=== PATIENT | male | born 1970 | race Caucasian/White ===

== ENCOUNTER 2023-11-06 18:26 | Inpatient (IN) | payer MEDICAID, SELFPAY ==
[2023-11-06] VITALS (22 sets, daily range): BP systolic 75–109; BP diastolic 56–74; PULSE 134–147; RESP 18–40; TEMP 37.1; O2SAT 79–93; BMI 17.8; BMI 17.7
--- NOTE | 2023-11-06 18:33 | XRR_ITS ---
PROCEDURE INFORMATION: Exam: XR Chest Exam date and time: 11/06/2023 6:41 PM Age: 53 years old Clinical indication: Angina pectoris; Patient HX: Chest pain TECHNIQUE: Imaging protocol: Radiologic exam of the chest. Views: 1 view. COMPARISON: No relevant prior studies available. FINDINGS: Lungs: Left mid to lower lung field pneumonia. Emphysematous changes. Pleural spaces: Small bilateral left greater than right pleural effusions suspected. Heart/Mediastinum: Unremarkable. No cardiomegaly. Bones/joints: Unremarkable. XR/XR chest 1V portable [id number] IMPRESSION: 1. Left mid to lower lung field pneumonia. 2. Small bilateral left greater than right pleural effusions suspected. 3. Emphysematous changes.
--- NOTE | 2023-11-06 18:33 | ECG_ITS ---
[facility] Test Date: 2023-11-06 Pat Name: Johnathan Santiago Department: Room: ICU02 Gender: Male Rn Occupational: : 1970 Requested By: Art Pulido Order Number: [id number] Trena MD: Sharmin Barboza M.D. Measurements Intervals [place] Rate: 144 P: 72 AK: 120 QRS: 80 QRSD: 87 T: 69 QT: 263 QTc: 407 Interpretive Statements SINUS TACHYCARDIA, POSSIBLE ATRIAL FLUTTER ABNORMAL RHYTHM ECG INTERPRETATION BASED ON A DEFAULT AGE OF 40 YEARS No previous ECG available for comparison Electronically Signed On 11-07-2023 20:51:34 [employer] by Sharmin Barboza M.D. [id number] f
--- NOTE | 2023-11-06 18:37 | ED_ITS ---
Documented by User: Art Garcia DO 11/07/23 00:43 HPI - Chest Pain 2 General: Chief Complaint: Chest Pain Stated Complaint: CHEST PAIN Time Seen by Provider: 11/06/23 18:29 History of Present Illness: 53-year-old male he says he has been sic k for 24 hours or so. He complains of left-sided pleuritic chest pain, cough, sputum production, and vomiting the last 24 hours. He says he has vomited several times last 24 hours. He denies a fever. He has not felt well. He is felt weak. He has been very short of breath. Associated symptoms: Reports dyspnea Review of Systems 2 Const: Reports: chills and body aches ENMT: Denies: throat pain Card: Reports: chest pain Resp: Reports: dyspnea and productive cough PFSH ED 2 PFSH: Family History Mother No problems noted. Father No problems noted. Social History Smoking and tobacco/nicotine status: current every day tobacco/nicotine user cigarettes Packs smoked per day: 1.5 Years cigarettes smoked: 40 [ Other cigarette details: at times smoked more than 1.5/ppd] Second hand smoke exposure: Yes Alcohol intake: current Alcohol intake frequency: few times a month Alcohol type: hard liquor Substance/Drug Use: never Household members: spouse Current occupational status: unemployed Physical Exam 2 Const: GENERAL APPEARANCE: cooperative and ill appearing HENMT: COMMON NORMALS: normocephalic, atraumatic and Normal external nose present HEAD & SCALP: normocephalic and atraumatic FACE & SINUS: normal facial exam and face symmetric NOSE: Normal external nose present and Normal nares present MOUTH: moist mucous membranes abnormal Details: parched Eye: COMMON NORMALS: Equal, round and reactive pupils present and EOMs intact bilaterally PUPIL: Yes Equal, round and reactive pupils present Neck/C-Spine: GENERAL: Yes trachea midline Resp: EFFORT & INSPECTION: Yes tachypneic and Yes labored AUSCULTATION: r honchi and diminished lung sounds Cardio: COMMON NORMALS: regular rhythm RATE: tachycardic RHYTHM: regular rhythm GI: COMMON NORMALS: Normal to inspection, nondistended, normoactive bowel sounds present Extremity: COMMON NORMALS: no pedal edema Neuro: ROCÍO COMA SCALE: document GCS findings Rocío coma scale eye opening: Spontaneous Rocío coma scale verbal response: Orientated Rocío coma scale motor response: Obey commands Rocío coma scale total score: 15 Procedures Central Line Placement Right IJ: Time Out Performed: Yes Patient Placed on Monitor/Pulse Ox: Yes MD Prep: mask, gown and gloves Central Line Prep: Chlorhexidine scrub Local Anesthetic: lidocaine 1% Amount of anesthesia used (mL): 3 Ultrasound Used for Placement: Yes Central Line Lumen Inserted: triple Post Procedure: sutured in place, good blood return, all ports aspirated, flushed, capped and sterile dressing applied Post Procedure X-Ray: tip of catheter in good position Patient Tolerated Procedure: well and no complications Complications: none Course 2 Vital Signs: Vital signs: Vital Signs Temperature 98.5 F 11/07/23 00:00 Pulse Rate 133 H 11/07/23 00:30 Respiratory Rate 38 H 11/07/23 00:30 Blood Pressure 92/55 11/07/23 00:30 Pulse Oximetry 89 L 11/07/23 00:30 Oxygen Delivery Me thod Heated High Flow 11/07/23 00:00 Oxygen Flow Rate 45 11/07/23 00:00 Fraction of Inspir ed Oxygen 80 11/07/23 00:00 MDM - Chest Pain Medical Decision Making Patient's heart rate is in the 140s. He is tachypneic. Oxygen saturations are low despite 6 L nasal cannula. White blood cell count is 26, 96% neutrophils. Chest x-ray shows left consolidated pneumonia. Lactic acid is 6.2. His CRP is 177. He meets sepsis criteria. He is hypotensive, with blood pressures as low as 75 systolic. He received a liter of Plasma-Lyte by EMS. He has received 2 L of fluid here, which is more than a suggested 30 mL/kg sepsis bolus. He remains hypotensive and tachycardic despite this. Central line will be placed. Levophed has been ordered as well as Zosyn and vancomycin. Patient is on heated high flow nasal cannula. Oxygen saturations are high 80s to low 90s. He looks improved. Blood pressure is improved after fluids and pressures. He will go to the ICU. Hospitalist has seen the patient in the ER. Chest x-ray shows line in good position. Lab Data 11/06/23 18:39 11/06/23 18:39 Radiology Impressions Chest X-Ray 11/06/23 21:18 IMPRESSION: 1. New right internal jugular venous catheter terminating in the region of the cavoatrial junction. 2. Otherwise stable radiographic appearance of the chest. Laboratory Results WBC 25.92 10^3/uL (3.29-11.43) H 11/06/23 18:39 RBC 4.36 10^6/uL (3.85-5.65) 11/06/23 18:39 Hgb 13.30 g/dL (11.27-16.99) 11/06/23 18:39 Hct 39.7 % (37-53) 11/06/23 18:39 MCV 91.1 fl (82-101) 11/06/23 18:39 MCH 30.5 pg (27-33) 11/06/23 18:39 MCHC 33.5 g/dL (30-55) 11/06/23 18:39 RDW 11.9 % (12.1-15.1) L 11/06/23 18:39 Plt Count 274 10^3/cmm (157-399) 11/06/23 18:39 MPV 9.1 fL (7.4-10.4) 11/06/23 18:39 Neut % (Auto) 96.9 % 11/06/23 18:39 Lymph % (Auto) 2.0 % 11/06/23 18:39 [place] % (Auto) 0.4 % 11/06/23 18:39 Eos % (Auto) 0.0 % 11/06/23 18:39 Baso % (Auto) 0.2 % 11/06/23 18:39 Neut # (Auto) 25.11 10^3/uL (1.8-7.7) H 11/06/23 18:39 Lymph # (Auto) 0.5 10^3/uL (0.8-4.8) L 11/06/23 18:39 [place] # (Auto) 0.1 10^3/uL (0.2-0.9) L 11/06/23 18:39 Eos # (Auto) 0.0 10^3/uL (0.0-0.8) 11/06/23 18:39 Baso # (Auto) 0.1 10^3/uL (0.0-0.1) 11/06/23 18:39 Nucleated RBC % (auto) 0 % 11/06/23 18:39 Nucleated RBCs # 0.0 /100WBC 11/06/23 18:39 D-Dimer 0.54 ug/mLFEU (0-0.59) 11/06/23 18:39 Sodium 130 mmol/L (136-145) L 11/06/23 18:39 Potassium 4.6 mmol/L (3.5-5.1) 11/06/23 18:39 Chloride 90 mmol/L (98-107) L 11/06/23 18:39 Carbon Dioxide 23 mmol/L (22-29) 11/06/23 18:39 Anion Gap 21.6 (5-19) H 11/06/23 18:39 BUN 33 mg/dL (6-20) H 11/06/23 18:39 Creatinine 1.5 mg/dL (0.7-1.2) H 11/06/23 18:39 GFR Calculation 48.6 mL/min (90-130) L 11/06/23 18:39 Glucose 91 mg/dL (65-115) 11/06/23 18:39 Calculated Osmolality 277 mOsm/kg (285-295) L 11/06/23 18:39 Lactic Acid 6.2 mmol/L (0.5-2.2) H* 11/06/23 18:39 Calcium 8.1 mg/dL (8.5-10.5) L 11/06/23 18:39 Magnesium 1.3 mg/dL (1.7-2.3) L 11/06/23 18:39 Total Bilirubin 0.5 mg/dL (0.15-1.2) 11/06/23 18:39 AST 21 U/L (0-40) 11/06/23 18:39 ALT 12 U/L (0-41) 11/06/23 18:39 Alkaline Phosphatase 66 U/L (40-130) 11/06/23 18:39 Creatine Kinase 246 U/L (39-308) 11/06/23 18:39 Troponin T Baseline 13 ng/L (0-15) 11/06/23 18:39 Troponin T 120 Minute 10.36 ng/L (0-15) 11/06/23 19:49 Delta Troponin T -2.64 ABS# (0-10) L 11/06/23 19:49 C-Reactive Protein 176.6 mg/L (0.0-4.9) H 11/06/23 18:39 Total Protein 5.2 g/dL (6.6-8.7) L 11/06/23 18:39 Albumin 3.3 g/dL (3.5-5.2) L 11/06/23 18:39 Globulin 1.9 g/dL (1.3-4.6) 11/06/23 18:39 Lipase 6 U/L (13-60) L 11/06/23 18:39 Urine Color Yellow (Yellow) 11/06/23 20:10 Urine Appearance Sl hazy (CLEAR) A 11/06/23 20:10 Urine pH 5 (5-7) 11/06/23 20:10 Ur Specific Lindsay 1.010 (1.005-1.030) 11/06/23 20:10 Urine Protein 1+ (Negative) H 11/06/23 20:10 Urine Glucose (UA) Norm (Normal) 11/06/23 20:10 Urine Ketones 1+ (Negative) H 11/06/23 20:10 Urine Blood 3+ (Negative) H 11/06/23 20:10 Urine Nitrate Negative (Negative) 11/06/23 20:10 Urine Bilirubin Neg (Negative) 11/06/23 20:10 Urine Urobilinogen Norm mg/dL (Negative) 11/06/23 20:10 Ur Leukocyte Esterase Negative (Negative) 11/06/23 20:10 Urine RBC 0-4 /hpf (0-2) H 11/06/23 20:10 Urine WBC 0-4 /hpf (0-5) H 11/06/23 20:10 Ur Squamous Epith Cells 0-4 /hpf (0-5) H 11/06/23 20:10 Amorphous Sediment Trace /hpf 11/06/23 20:10 Urine Bacteria 2+ /hpf (NONE) H 11/06/23 20:10 Hyaline Casts 0-4 /lpf H 11/06/23 20:10 Coarse Granular Casts 0-4 /lpf H 11/06/23 20:10 Urine Opiates Screen Negative ng/mL (Negative) 11/06/23 20:10 Ur Barbiturates Screen Negative ng/mL (Negative) 11/06/23 20:10 Ur Phencyclidine Scrn Negative ng/mL (Negative) 11/06/23 20:10 Ur Amphetamines Screen Negative ng/mL (Negative) 11/06/23 20:10 U Benzodiazepines Scrn Negative ng/mL (Negative) 11/06/23 20:10 Urine Cocaine Screen Negative ng/mL (Negative) 11/06/23 20:10 U Marijuana (THC) Screen Negative ng/mL (Negative) 11/06/23 20:10 Adenovirus (PCR) Not detected (NOT DETECT) 11/06/23 18:40 C. pneumoniae DNA (PCR) Not detected (NOT DETECT) 11/06/23 18:40 Coronavirus 229E (PCR) Not detected (NOT DETECT) 11/06/23 18:40 Human Metapneumovir PCR Not detected (NOT DETECT) 11/06/23 18:40 Influenza A (H1) PCR Not detected (NOT DETECT) 11/06/23 18:40 Influ A (H1/09) PCR Not detected (NOT DETECT) 11/06/23 18:40 Influenza A (H3) PCR Not detected (NOT DETECT) 11/06/23 18:40 Influenza Type A (PCR) Not detected (NOT DETECT) 11/06/23 18:40 Influenza Type B (PCR) Not detected (NOT DETECT) 11/06/23 18:40 M. pneumoniae (PCR) Not detected (NOT DETECT) 11/06/23 18:40 Parainfluenza 1 (PCR) Not detected (NOT DETECT) 11/06/23 18:40 Parainfluenza 2 (PCR) Not detected (NOT DETECT) 11/06/23 18:40 Parainfluenza 3 (PCR) Not detected (NOT DETECT) 11/06/23 18:40 Parainfluenza 4 (PCR) Not detected (NOT DETECT) 11/06/23 18:40 RSV Type A (PCR) Not detected (NOT DETECT) 11/06/23 18:40 RSV Type B (PCR) Not detected (NOT DETECT) 11/06/23 18:40 Entero/Rhino (PCR) Not detected (NOT DETECT) 11/06/23 18:40 SARS-CoV-2 (PCR) Not detected (NOT DETECT) 11/06/23 18:40 All radiology interpretation(s) finalized by discharge Discharge Plan Discharge Patient Disposition: Admitted As Inpatient Admit Provider: Bob Tidwell Clinical Impression: Sepsis with acute respiratory failure and septic shock, Pneumonia Condition: Critical Coding Level of Care Code ED Interventional Radiologist for Chg Fwd Documented by User: Bob Tidwell DO 11/06/23 21:21 HPI - Chest Pain 2 General: Chief Complaint: Chest Pain Stated Complaint: CHEST PAIN Time Seen by Provider: 11/06/23 18:29 PFS ED 2 PFSH: Family History Mother No problems noted. Father No problems noted. Social History Smoking and tobacco/nicotine status: current every day tobacco/nicotine user cigarettes Packs smoked per day: 1.5 Years cigarettes smoked: 40 [ Other cigarette details: at times smoked more than 1.5/ppd] Second hand smoke exposure: Yes Alcohol intake: current Alcohol intake frequency: few times a month Alcohol type: hard liquor Substance/Drug Use: never Household members: spouse Current occupational status: unemployed Physical Exam 2 Neuro: ROCÍO COMA SCALE: document GCS findings [place] coma scale total score: 15 Course 2 Vital Signs: Vital signs: Vital Signs Temperature 98.5 F 11/07/23 00:00 Pulse Rate 133 H 11/07/23 00:30 Respiratory Rate 38 H 11/07/23 00:30 Blood Pressure 92/55 11/07/23 00:30 Pulse Oximetry 89 L 11/07/23 00:30 Oxygen Delivery Me thod Heated High Flow 11/07/23 00:00 Oxygen Flow Rate 45 11/07/23 00:00 Fraction of Inspir ed Oxygen 80 11/07/23 00:00 MDM - Chest Pain Lab Data 11/06/23 18:39 11/06/23 18:39 Radiology Impressions Chest X-Ray 11/06/23 21:18 IMPRESSION: 1. New right internal jugular venous catheter terminating in the region of the cavoatrial junction. 2. Otherwise stable radiographic appearance of the chest. Laboratory Results WBC 25.92 10^3/uL (3.29-11.43) H 11/06/23 18:39 RBC 4.36 10^6/uL (3.85-5.65) 11/06/23 18:39 Hgb 13.30 g/dL (11.27-16.99) 11/06/23 18:39 Hct 39.7 % (37-53) 11/06/23 18:39 MCV 91.1 fl (82-101) 11/06/23 18:39 MCH 30.5 pg (27-33) 11/06/23 18:39 MCHC 33.5 g/dL (30-55) 11/06/23 18:39 RDW 11.9 % (12.1-15.1) L 11/06/23 18:39 Plt Count 274 10^3/cmm (157-399) 11/06/23 18:39 MPV 9.1 fL (7.4-10.4) 11/06/23 18:39 Neut % (Auto) 96.9 % 11/06/23 18:39 Lymph % (Auto) 2.0 % 11/06/23 18:39 [place] % (Auto) 0.4 % 11/06/23 18:39 Eos % (Auto) 0.0 % 11/06/23 18:39 Baso % (Auto) 0.2 % 11/06/23 18:39 Neut # (Auto) 25.11 10^3/uL (1.8-7.7) H 11/06/23 18:39 Lymph # (Auto) 0.5 10^3/uL (0.8-4.8) L 11/06/23 18:39 [place] # (Auto) 0.1 10^3/uL (0.2-0.9) L 11/06/23 18:39 Eos # (Auto) 0.0 10^3/uL (0.0-0.8) 11/06/23 18:39 Baso # (Auto) 0.1 10^3/uL (0.0-0.1) 11/06/23 18:39 Nucleated RBC % (auto) 0 % 11/06/23 18:39 Nucleated RBCs # 0.0 /100WBC 11/06/23 18:39 D-Dimer 0.54 ug/mLFEU (0-0.59) 11/06/23 18:39 Sodium 130 mmol/L (136-145) L 11/06/23 18:39 Potassium 4.6 mmol/L (3.5-5.1) 11/06/23 18:39 Chloride 90 mmol/L (98-107) L 11/06/23 18:39 Carbon Dioxide 23 mmol/L (22-29) 11/06/23 18:39 Anion Gap 21.6 (5-19) H 11/06/23 18:39 BUN 33 mg/dL (6-20) H 11/06/23 18:39 Creatinine 1.5 mg/dL (0.7-1.2) H 11/06/23 18:39 GFR Calculation 48.6 mL/min (90-130) L 11/06/23 18:39 Glucose 91 mg/dL (65-115) 11/06/23 18:39 Calculated Osmolality 277 mOsm/kg (285-295) L 11/06/23 18:39 Lactic Acid 6.2 mmol/L (0.5-2.2) H* 11/06/23 18:39 Calcium 8.1 mg/dL (8.5-10.5) L 11/06/23 18:39 Magnesium 1.3 mg/dL (1.7-2.3) L 11/06/23 18:39 Total Bilirubin 0.5 mg/dL (0.15-1.2) 11/06/23 18:39 AST 21 U/L (0-40) 11/06/23 18:39 ALT 12 U/L (0-41) 11/06/23 18:39 Alkaline Phosphatase 66 U/L (40-130) 11/06/23 18:39 Creatine Kinase 246 U/L (39-308) 11/06/23 18:39 Troponin T Baseline 13 ng/L (0-15) 11/06/23 18:39 Troponin T 120 Minute 10.36 ng/L (0-15) 11/06/23 19:49 Delta Troponin T -2.64 ABS# (0-10) L 11/06/23 19:49 C-Reactive Protein 176.6 mg/L (0.0-4.9) H 11/06/23 18:39 Total Protein 5.2 g/dL (6.6-8.7) L 11/06/23 18:39 Albumin 3.3 g/dL (3.5-5.2) L 11/06/23 18:39 Globulin 1.9 g/dL (1.3-4.6) 11/06/23 18:39 Lipase 6 U/L (13-60) L 11/06/23 18:39 Urine Color Yellow (Yellow) 11/06/23 20:10 Urine Appearance Sl hazy (CLEAR) A 11/06/23 20:10 Urine pH 5 (5-7) 11/06/23 20:10 Ur Specific [place] 1.010 (1.005-1.030) 11/06/23 20:10 Urine Protein 1+ (Negative) H 11/06/23 20:10 Urine Glucose (UA) Norm (Normal) 11/06/23 20:10 Urine Ketones 1+ (Negative) H 11/06/23 20:10 Urine Blood 3+ (Negative) H 11/06/23 20:10 Urine Nitrate Negative (Negative) 11/06/23 20:10 Urine Bilirubin Neg (Negative) 11/06/23 20:10 Urine Urobilinogen Norm mg/dL (Negative) 11/06/23 20:10 Ur Leukocyte Esterase Negative (Negative) 11/06/23 20:10 Urine RBC 0-4 /hpf (0-2) H 11/06/23 20:10 Urine WBC 0-4 /hpf (0-5) H 11/06/23 20:10 Ur Squamous Epith Cells 0-4 /hpf (0-5) H 11/06/23 20:10 Amorphous Sediment Trace /hpf 11/06/23 20:10 Urine Bacteria 2+ /hpf (NONE) H 11/06/23 20:10 Hyaline Casts 0-4 /lpf H 11/06/23 20:10 Coarse Granular Casts 0-4 /lpf H 11/06/23 20:10 Urine Opiates Screen Negative ng/mL (Negative) 11/06/23 20:10 Ur Barbiturates Screen Negative ng/mL (Negative) 11/06/23 20:10 Ur Phencyclidine Scrn Negative ng/mL (Negative) 11/06/23 20:10 Ur Amphetamines Screen Negative ng/mL (Negative) 11/06/23 20:10 U Benzodiazepines Scrn Negative ng/mL (Negative) 11/06/23 20:10 Urine Cocaine Screen Negative ng/mL (Negative) 11/06/23 20:10 U Marijuana (THC) Screen Negative ng/mL (Negative) 11/06/23 20:10 Adenovirus (PCR) Not detected (NOT DETECT) 11/06/23 18:40 C. pneumoniae DNA (PCR) Not detected (NOT DETECT) 11/06/23 18:40 Coronavirus 229E (PCR) Not detected (NOT DETECT) 11/06/23 18:40 Human Metapneumovir PCR Not detected (NOT DETECT) 11/06/23 18:40 Influenza A (H1) PCR Not detected (NOT DETECT) 11/06/23 18:40 Influ A (H1/09) PCR Not detected (NOT DETECT) 11/06/23 18:40 Influenza A (H3) PCR Not detected (NOT DETECT) 11/06/23 18:40 Influenza Type A (PCR) Not detected (NOT DETECT) 11/06/23 18:40 Influenza Type B (PCR) Not detected (NOT DETECT) 11/06/23 18:40 M. pneumoniae (PCR) Not detected (NOT DETECT) 11/06/23 18:40 Parainfluenza 1 (PCR) Not detected (NOT DETECT) 11/06/23 18:40 Parainfluenza 2 (PCR) Not detected (NOT DETECT) 11/06/23 18:40 Parainfluenza 3 (PCR) Not detected (NOT DETECT) 11/06/23 18:40 Parainfluenza 4 (PCR) Not detected (NOT DETECT) 11/06/23 18:40 RSV Type A (PCR) Not detected (NOT DETECT) 11/06/23 18:40 RSV Type B (PCR) Not detected (NOT DETECT) 11/06/23 18:40 Entero/Rhino (PCR) Not detected (NOT DETECT) 11/06/23 18:40 SARS-CoV-2 (PCR) Not detected (NOT DETECT) 11/06/23 18:40 Discharge Plan Discharge Patient Disposition: Admitted As Inpatient Admit Provider: Bob Tidwell Clinical Impression: Sepsis with acute respiratory failure and septic shock, Pneumonia Condition: Critical Coding Level of Care Code ED Interventional Radiologist for Rafiq Vee
[2023-11-06] MEDS: sodium chloride 0.9% 1,000 ML 999 ML IV ×2 (18:44→20:07)
[2023-11-06 18:46] LABS: Basophils # 0.1 10^3/uL (0.0-0.1); Basophils % 0.2 %; Hematocrit 39.7 % (37-53); Lymphocytes # 0.5 10^3/uL (0.8-4.8); Mean Corpuscular HGB Conc 33.5 g/dL (30-55); Mean Corpuscular Hemoglobin 30.5 pg (27-33); Mean Corpuscular Volume 91.1 fl (82-101); Mean Platelet Volume 9.1 fL (7.4-10.4); Monocytes # 0.1 10^3/uL (0.2-0.9); Monocytes % 0.4 %; Neutrophils # 25.11 10^3/uL (1.8-7.7); Neutrophils % 96.9 %; Nucleated Red Blood Cells % 0 %; Platelet Count 274 10^3/cmm (157-399); Red Blood Count 4.36 10^6/uL (3.85-5.65); Red Cell Distribution Width 11.9 % (12.1-15.1); White Blood Count 25.92 10^3/uL (3.29-11.43)
[2023-11-06 19:04] LABS: Troponin(5th) Baseline 13 ng/L (0-15)
[2023-11-06 19:05] LABS: Alanine Aminotransferase 12 U/L (0-41); Albumin Level 3.3 g/dL (3.5-5.2); Alkaline Phosphatase 66 U/L (40-130); Aspartate Amino Transferase 21 U/L (0-40); Blood Urea Nitrogen 33 mg/dL (6-20); C Reactive Protein 176.6 mg/L (0.0-4.9); Calcium 8.1 mg/dL (8.5-10.5); Carbon Dioxide 23 mmol/L (22-29); Chloride 90 mmol/L (98-107); Creatine Phosphokinase 246 U/L (39-308); Creatinine Clr Calc Pharmacy 48.1942; Globulin 1.9 g/dL (1.3-4.6); Glomerular Filtration Rate 48.6 mL/min (90-130); Glucose 91 mg/dL (65-115); Lipase 6 U/L (13-60); Magnesium 1.3 mg/dL (1.7-2.3); Osmolality Calculated 277 mOsm/kg (285-295); Sodium 130 mmol/L (136-145); Total Bilirubin 0.5 mg/dL (0.15-1.2); Total Protein 5.2 g/dL (6.6-8.7)
[2023-11-06 19:07] LABS: Anion Gap 21.6 (5-19); Potassium 4.6 mmol/L (3.5-5.1)
[2023-11-06 19:08] LABS: D Dimer 0.54 ug/mLFEU (0-0.59); Lactic Sepsis W/Reflex 6.2 mmol/L (0.5-2.2)
[2023-11-06] MEDS: piperacillin-tazobactam 4.5 GM in sodium chloride 0.9% (plus) 50 ML IV (19:30)
[2023-11-06] MEDS: norepinephrine 4 MG/250 ML BAG 7.5 MG IV (19:56)
[2023-11-06 20:17] LABS: Troponin 5 2HR 10.36 ng/L (0-15)
[2023-11-06 20:18] LABS: Troponin 5 2HR Delta -2.64 ABS# (0-10)
[2023-11-06 20:32] LABS: Reflex Lactate Order REFLEX LACTIC ORDERD
[2023-11-06 20:34] LABS: Adenovirus Not Detected (NOT DETECT); Chlamydia Pneumoniae Not Detected (NOT DETECT); Coronavirus 229E,HKU1,NL63,OC4 Not Detected (NOT DETECT); Human Metapneumovirus Not Detected (NOT DETECT); Human Rhinovirus/Enterovirus Not Detected (NOT DETECT); Influenza A Not Detected (NOT DETECT); Influenza A H1 Not Detected (NOT DETECT); Influenza A H1-2009 Not Detected (NOT DETECT); Influenza A H3 Not Detected (NOT DETECT); Influenza B Not Detected (NOT DETECT); Mycoplasma Pneumoniae Not Detected (NOT DETECT); Parainfluenza Virus Type 1 Not Detected (NOT DETECT); Parainfluenza Virus Type 2 Not Detected (NOT DETECT); Parainfluenza Virus Type 3 Not Detected (NOT DETECT); Parainfluenza Virus Type 4 Not Detected (NOT DETECT); Respiratory Syncytial Virus A Not Detected (NOT DETECT); Respiratory Syncytial Virus B Not Detected (NOT DETECT); SARS-COV-2 Not Detected (NOT DETECT)
[2023-11-06 20:42] LABS: Add Urine Microscopic? YES; Urine Appearance SL Hazy (CLEAR); Urine Color Yellow (Yellow); pH Urine 5 (5-7)
[2023-11-06 20:43] LABS: Amorphous Sediment Urine TRACE /hpf; Bacteria Urine 2+ /hpf; Bilirubin Urine Neg (Negative); Blood Urine 3+ (Negative); Coarse Granular Casts Urine 0-4 /lpf; Glucose Urine UA Norm (Normal); Hyaline Casts Urine 0-4 /lpf; Ketones Urine 1+ (Negative); Leukocyte Esterase Urine Negative (Negative); Nitrate Urine Negative (Negative); Protein Urine 1+ (Negative); RBC Urine 0-4 /hpf (0-2); Squamous Epithelial Cell Urine 0-4 /hpf (0-5); Urobilinogen Urine Norm (Negative); WBC Urine 0-4 /hpf (0-5)
[2023-11-06 20:44] LABS: Add Urine Culture? Yes
[2023-11-06 20:46] LABS: Amphetamines Screen Urine Negative (Negative); Barbiturates Screen Urine Negative (Negative); Benzodiazepines Screen Urine Negative (Negative); Cocaine Screen Urine Negative (Negative); Opiate Screen Urine Negative (Negative); PCP Screen Urine Negative (Negative); THC Screen Urine Negative (Negative)
--- NOTE | 2023-11-06 21:01 | P.HP_ITS ---
Providers/Chief Complaint 2 Admitting Physician: Bob Tidwell DO Chief Complaint: CHEST PAIN History of Present Illness Johnathan Santiago is a 53 year old male with no significant past medical history presents with 24 hours of acute illness. He he and his give history. They report that he started feeling poorly after eating [employer] yesterday evening. He started vomiting and did not stop until 1 PM today. She called him last night and she knew he was sick but he was holding up well. Reportedly the next time they spoke at 430 this afternoon she noted a marked difference that he was very short of breath he sounded very ill and was complaining of significant left-sided chest pain and abdominal pain. She called an ambulance. In the ambulance he was given fluid resuscitation for hypotension. In the ED he remained hypotensive and received 2 L of fluids. His lactate was markedly elevated at 6 and he was significantly tachycardic and hypoxic. He remained hypoxic on 6 L nasal cannula and was changed to a BiPAP. I saw him just after being placed on the BiPAP and after the history is taken above he was unable to tolerate the BiPAP and took it off. He was replaced onto the 6 L nasal cannula with an O2 sat of around 85%. A left lower lobe consolidation was seen on plain film chest x-ray. Working diagnosis at this point is sepsis due to left lower lobe pneumonia community-acquired. Review of Systems 2 Const: Denies: fever(s) or chills Eyes: Denies: change in vision ENMT: Denies: throat pain or nasal congestion Card: Reports: chest pain; Denies: palpitations Resp: Reports: dyspnea, productive cough and chest congestion GI: Denies: change in stool character : Denies: difficulty urinating or dysuria Musc: Denies: extremity pain Skin/Breast: Denies: rash or lesions Neuro: Denies: headache(s) or dizziness Psych: Denies: depression Nico/Lymph: Denies: easy bruising or easy bleeding Medications/Allergies Allergies Allergy/AdvReac Type Severity Reaction Status Date / Time No Known Allergies Allergy Verified 11/06/23 18:36 PFSH Acute 2 PFSH: Family History Mother No problems noted. Father No problems noted. Social History Smoking and tobacco/nicotine status: current every day tobacco/nicotine user cigarettes Packs smoked per day: 1.5 Years cigarettes smoked: 40 [ Other cigarette details: at times smoked more than 1.5/ppd] Second hand smoke exposure: Yes Alcohol intake: current Alcohol intake frequency: few times a month Alcohol type: hard liquor Substance/Drug Use: never Household members: spouse Current occupational status: unemployed Vitals/I&O/Wt Last Vital Signs Temp 98.7 F 11/06/23 18:28 Pulse 140 H 11/06/23 20:23 Resp 18 11/06/23 18:46 BP 96/61 11/06/23 19:33 Pulse Ox 93 11/06/23 20:23 O2 Del Method Nasal Cannula 11/06/23 19:33 O2 Flow Rate 7 11/06/23 19:33 FiO2 50 11/06/23 20:23 11/06/23 11/06/23 11/06/23 06:59 14:59 22:59 Intake Total 1001.875 / 1001.875 Balance 1001.875 / 1001.875 Weight last 48 hrs Weight 61.235 kg Physical Exam 2 Narrative: Patient appears acutely ill with tachypnea and tachycardia. He is dyspneic at rest and increases with conversation. HEENT: Head is normocephalic atraumatic pupils equal round reactive to light and accommodation extraocular muscles are intact there is no scleral icterus the left eyelid has to lesions on the left lower outer eyelid there appears to be a skin tag and possibly a millia in the medial aspect of that left eye lid. Mucous membranes of nasopharyngeal is erythematous and edematous neck Neck is supple no JVD carotid bruits or lymphadenopathy Heart is tachycardic I am unable to assess for other irregular heart sounds no loud murmurs appreciated Lungs diminished throughout however no breath sounds in the left lower to mid lobe lung hernandez no overt wheezes rales or rhonchi either Abdomen soft left upper quadrant tenderness no hepatosplenomegaly no rebound rigidity or guarding normal male Back pelvis no obvious scoliosis or kyphosis no CVA tenderness Extremities no clubbing cyanosis or edema in the lower extremities no obvious deformities elsewhere Neuro: Alert and oriented to person place time and situation exam is nonfocal Psych: Appears to have claustrophobia and some anxiety related to shortness of breath or overall illness Skin: Decreased cap refill bilateral hands No obvious rashes or lesions otherwise Data 11/06/23 18:39 11/06/23 18:39 Micro: Microbiology 11/06/23 18:55 Blood Culture - Preliminary Blood SPECIMEN COLLECTED 11/06/23 18:55 Blood Culture - Preliminary Blood SPECIMEN COLLECTED CXR: My impression: Left lower and left mid lung field infiltrate has appearance of fibrosis with clear delineation. Radiologist's impression: IMPRESSION: 1. Left mid to lower lung field pneumonia. 2. Small bilateral left greater than right pleural effusions suspected. 3. Emphysematous changes. EKG 1: My Interpretation: Sinus tach A&P Assessment and plan (1) Sepsis with acute respiratory failure and septic shock: Sepsis protocol initiated in the ED patient has received appropriate fluid bolus and started on levo Levophed in the emergency room. Antibiotics were ordered in the ED I will change to Rocephin and Zithromax for community-acquired pneumonia. Will continue to follow sepsis protocol Qualifiers: Acute respiratory failure type: with hypoxia (2) Pneumonia: Spoke with ER physician and respiratory will likely change to heated high flow nasal cannula secondary to patient not tolerating BiPAP I did order a low-dose of Ativan for his anxiety and claustrophobia as needed respiratory evaluate and treat will need nebs Likely has underlying emphysema as seen on chest x-ray and by history will need to be discharged on appropriate regimen Qualifiers: Pneumonia type: due to unspecified organism Laterality: left Lung location: lower lobe of lung Qualified Code(s): J18.9 - Pneumonia, unspecified organism (3) Back pain: reports the patient takes gabapentin meloxicam amitriptyline and methocarbamol for back pain and establishment for disability application Holding medications at this time until respiratory status has stabilized for p.o. intake Qualifiers: Back pain location: low back pain Chronicity: chronic Back pain laterality: bilateral Sciatica presence: without sciatica Qualified Code(s): M 54.50 - Low back pain, unspecified; G89.29 - Other chronic pain Attestations 2 Medical Necessity Statement*: Patient required greater than 2 midnight stay due to severe sepsis with life- threatening respiratory failure secondary to pneumonia. Coding Level of Care Code Acute Code for [facility] Diagnoses Sepsis with acute respiratory failure and septic shock A41.9; R65.21; J96.00 Acute respiratory failure type: with hypoxia Pneumonia of left lower lobe due to infectious organism J18.9 Pneumonia type: due to unspecified organism Laterality: left Lung location: lower lobe of lung Chronic bilateral low back pain without sciatica M54.50; G89.29 Back pain location: low back pain Chronicity: chronic Back pain laterality: bilateral Sciatica presence: without sciatica
--- NOTE | 2023-11-06 21:15 | PC.NURSE ---
Pt first dose of Vancomycin was wasted due to a hole in the fluid bag leaking. Per Dr. Garcia verbal order another dose was ordered.
--- NOTE | 2023-11-06 21:18 | XRR_ITS ---
PROCEDURE INFORMATION: Exam: XR Chest Exam date and time: 11/06/2023 9:22 PM Age: 53 years old Clinical indication: Other vascular access device placement or adjustment; Central line, non-tunnelled; Patient HX: Central line placement TECHNIQUE: Imaging protocol: Radiologic exam of the chest. Views: 1 view. COMPARISON: CR (CHEST, ) 11/06/2023 6:41 PM FINDINGS: Tubes, catheters and devices: New right internal jugular venous catheter terminating in the region of the cavoatrial junction. Lungs: Stable left basilar consolidation. No new pulmonary opacities. Pleural spaces: Possible underlying left pleural effusion. No definitive right pleural effusion. No pneumothorax. Heart/Mediastinum: Unremarkable. No cardiomegaly. Bones/joints: Unremarkable. Soft tissues: Otherwise stable radiographic appearance of the chest. XR/XR chest 1V portable [id number] IMPRESSION: 1. New right internal jugular venous catheter terminating in the region of the cavoatrial junction. 2. Otherwise stable radiographic appearance of the chest.
[2023-11-06] MEDS: vancomycin 1,000 MG in sodium chloride 0.9% 250 ML 250 MG IV (21:24)
[2023-11-06 22:28] LABS: Lactic Acid level (Lactate) 3.9 mmol/L (0.5-2.2)
--- NOTE | 2023-11-06 22:35 | PC.NURSE ---
TB risk factors Patient states he has a history of being homeless as well as unexplained weight loss, night sweats, and hemoptysis. Patient states he has never been diagnosed with TB nor has he had a positive test. Dr. Tidwell notified of risk factors; no new orders received.
[2023-11-06] MEDS: azithromycin 500 MG in sodium chloride 0.9% 250 ML 250 MG IV (22:49)
[2023-11-06] MEDS: cefTRIAXone 1,000 MG in sodium chloride 0.9% (plus) 50 ML 100 MG IV (22:55)
[2023-11-06] MEDS: famotidine 20 mg/2 mL INJ IVP (23:02)
[2023-11-06] MEDS: enoxaparin 40 mg/0.4 mL Syringe SUBCUT (23:02)
[2023-11-06] MEDS: sodium chloride 0.9 % (flush) syringe 10 mL IV (23:10)
[2023-11-06] MEDS: sodium chloride 0.9% 1,000 ML 250 ML IV (23:18)
--- NOTE | 2023-11-06 23:40 | PC.NURSE ---
Ativan, Morphine Patient remaining short of breath on heated high flow 80% FIO2, using accessory muscles with nostril flaring present and staying in a tripod position. Respiratory rate maintaining 30-40, HR 130-140. Dr. Tidwell at bedside; verbal orders received for 2 mg morphine IVP Q4H PRN for air hunger and 0.5 mg ativan IVP PRN Q8H for anxiety. See MAR for details.
[2023-11-06] MEDS: morphine 4 mg/mL SDV 1 mL 2 MG IVP (23:42)
[2023-11-07] VITALS (108 sets, daily range): BP systolic 78–106; BP diastolic 55–80; PULSE 88–142; RESP 16–41; TEMP 36.2–37.8; O2SAT 88–100; BMI 17.9
--- NOTE | 2023-11-07 01:25 | PC.NURSE ---
Physician Communication Patient's HR maintaining 130-140 with a respiratory rate ranging from 30-40 and an oxygen saturation remaining 88 to low 90s. Physically, patient remains short of breath while using accessory muscles to breath. Dr. Tidwell notified of patient status; order received for 40 mg solumedrol IVP Q24H starting at 0600. See MAR for details.
[2023-11-07 01:40] LABS: Troponin 5 6HR 18.04 ng/L (0-15); Troponin 5 6HR Delta 5.04 ng/L (0-12)
[2023-11-07 01:41] LABS: Lactate (Lactic Acid level) 3.3 mmol/L (0.5-2.2)
[2023-11-07] MEDS: LORazepam 2 mg/mL INJ 10 mL MDV 0.5 MG IVP (02:27)
[2023-11-07] MEDS: ipratropium 0.5 mg/2.5 mL Neb INHALATION ×4 (02:35→19:48)
[2023-11-07] MEDS: levalbuterol 1.25 mg/3 mL Neb INHALATION ×4 (02:36→19:48)
--- NOTE | 2023-11-07 02:50 | PC.NURSE ---
Bipap Patient remaining short of breath and tachypneic. Education provided regarding risks of maintaining increased respiratory efforts, bipap use, as well as ativan use and side effects. Patient wary of bipap mask stating once again that he is claustrophobic. Further education provided and patient agreeable to attempt to wear bipap mask now with ativan administration. Bipap placed on patient.
[2023-11-07] MEDS: sodium chloride 0.9% 1,000 ML 250 ML IV (03:29)
[2023-11-07] MEDS: morphine 4 mg/mL SDV 1 mL 2 MG IVP ×3 (04:49→14:30)
--- NOTE | 2023-11-07 05:09 | PC.NURSE ---
Labs BMP currently ordered for 0400 while a CBC is ordered for 1000. Dr. Tidwell contacted and order received to change both labs to 0800. medical record technician notified. Additionally, Dr. Tidwell notified of patient's RR still maintaining in the 30s while on bipap at 70% FIO2. No new orders received.
[2023-11-07] MEDS: methylPREDNISolone sod succ 40 mg/mL INJ IVP (05:39)
[2023-11-07] MEDS: dextrose 10% 125 ML 750 ML IV (06:05)
[2023-11-07 06:37] LABS: Glucose Point of Care 52 mg/dL (70-110)
[2023-11-07 06:37] LABS: Glucose Point of Care 91 mg/dL (70-110)
[2023-11-07] MEDS: dextrose 5%-sod chloride 0.9% 1,000 ML 100 ML IV ×2 (06:57→18:09)
--- NOTE | 2023-11-07 07:02 | PC.NURSE ---
Blood Sugar Patient's blood sugar 52 this AM. 125 ml of D10 administered over 10 minutes per hypoglycemia protocol. Blood sugar resulted at [address] Tidwell notified; order received to discontinue NS maintenance fluid and start D5NS at 100 ml/hr IV continuous. See MAR for details.
[2023-11-07 07:10] LABS: Basophils # 0.1 10^3/uL (0.0-0.1); Basophils % 0.4 %; Eosinophils # 0.2 10^3/uL (0.0-0.8); Eosinophils % 1.1 %; Hematocrit 34.5 % (37-53); Lymphocytes # 0.3 10^3/uL (0.8-4.8); Lymphocytes % 1.2 %; Mean Corpuscular HGB Conc 33.6 g/dL (30-55); Mean Corpuscular Hemoglobin 30.4 pg (27-33); Mean Corpuscular Volume 90.6 fl (82-101); Mean Platelet Volume 8.8 fL (7.4-10.4); Monocytes # 0.1 10^3/uL (0.2-0.9); Monocytes % 0.4 %; Neutrophils # 19.36 10^3/uL (1.8-7.7); Neutrophils % 96.2 %; Nucleated Red Blood Cells % 0 %; Platelet Count 180 10^3/cmm (157-399); Red Blood Count 3.81 10^6/uL (3.85-5.65); Red Cell Distribution Width 12.2 % (12.1-15.1); White Blood Count 20.16 10^3/uL (3.29-11.43)
[2023-11-07 07:26] LABS: Anion Gap 14.8 (5-19); Blood Urea Nitrogen 22 mg/dL (6-20); Calcium 6.9 mg/dL (8.5-10.5); Carbon Dioxide 21 mmol/L (22-29); Chloride 98 mmol/L (98-107); Creatinine Clr Calc Pharmacy 72.8273; Glomerular Filtration Rate 77.6 mL/min (90-130); Glucose 97 mg/dL (65-115); Osmolality Calculated 273 mOsm/kg (285-295); Potassium 3.8 mmol/L (3.5-5.1); Sodium 130 mmol/L (136-145)
--- NOTE | 2023-11-07 07:30 | ECG_ITS ---
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 Measurements Intervals [place] Rate: 128 P: 69 TN: 136 QRS: 68 QRSD: 89 T: 61 QT: 298 QTc: 435 Interpretive Statements SINUS TACHYCARDIA ABNORMAL RHYTHM ECG Compared to ECG 11/06/2023 18:33:36 No significant changes Electronically Signed On 11-07-2023 21:03:16 ALLOCATIONS CLERK by Sharmin Barboza M.D. [id number]
--- NOTE | 2023-11-07 08:03 | PC.NURSE ---
awaken this am anxious with resp rate up to 40s and heart rate elevated on bipap at this time .. morphine given iv
[2023-11-07] MEDS: levofloxacin-dextrose 5 % 750 MG/150 ML PREMIX 100 MG IV (08:19)
[2023-11-07] MEDS: dexmedeTOMIDine 0.9 % NaCL 400 MCG/100 ML PREMIX 1.54000000000000004 MCG IV (08:20)
[2023-11-07 08:23] LABS: ABG PCO2 36.4 mmHg (35-45); ABG PH Result 7.36 (7.35-7.45); Arterial Blood Gas Hematocrit 37.5 % (42-52); Base Excess ABG -4.5 mmol/L (-2.0-2.0); Blood Gas Operator Identificat GD; Blood Gas Sample Site Brachial, right; Blood Gas Sample Type Arterial; HCO3 ABG 20.4 mmol/L (22-26); Oxygen Device BIPAP; PO2 ABG 80.6 mmHg (80.0-100.0); PO2 FiO2 Ratio Arterial Blood 0
--- NOTE | 2023-11-07 08:35 | P.PN_ITS ---
Subjective 2 Subjective: Nursing reports worsening dyspnea overnight. Appears very tired and RR is elevated. He is on BiPAP at 70%. Medications: Reviewed: Yes Vitals/I&O/Wt Last Vital Signs Temp 100.1 F H 11/07/23 04:30 Pulse 938 H 11/07/23 08:00 Resp 32 H 11/07/23 07:45 BP 91/67 11/07/23 06:30 Pulse Ox 96 11/07/23 08:00 O2 Del Method BiPAP 11/07/23 07:45 O2 Flow Rate 50 11/07/23 02:30 FiO2 70 11/07/23 08:00 11/06/23 11/07/23 11/07/23 22:59 06:59 14:59 Intake Total 2051.875 / 2051.875 1525.5 / 3577.375 1250 / 1250 Output Total 1325 / 1325 Balance 2051.875 / 2051.875 200.5 / 2252.375 1250 / 1250 Weight last 48 hrs Weight 136 lb Weight 134 lb 6.4 oz Weight 135 lb Physical Exam 2 Narrative: General: Tired appearing patient sitting up in bed. BIPAP in place, tachypneic. HEENT: Normocephalic, Atraumatic. External ears normal. Nasal passages patent without drainage. MMM. Heart: Tachycardic, Regular rhythm. Resp: LCTA. No respiratory distress, no use of accessory muscles. Abd: Soft, non-tender. Non-distended. Extremities: No edema. Skin: No rash or lesions on exposed areas. Neuro: No focal motor or sensory loss. Data 11/07/23 07:00 11/07/23 07:00 Micro: Microbiology 11/06/23 18:55 Blood Culture - Preliminary Blood SPECIMEN COLLECTED 11/06/23 18:55 Blood Culture - Preliminary Blood SPECIMEN COLLECTED A&P Assessment and plan (1) Sepsis with acute respiratory failure and septic shock: Qualifiers: Acute respiratory failure type: with hypoxia (2) Pneumonia: Qualifiers: Laterality: left Lung location: lower lobe of lung Pneumonia type: due to unspecified organism Qualified Code(s): J18.9 - Pneumonia, unspecified organism (3) Hyponatremia: (4) Back pain: Qualifiers: Back pain location: low back pain Chronicity: chronic Back pain laterality: bilateral Sciatica presence: without sciatica Qualified Code(s): M 54.50 - Low back pain, unspecified; G89.29 - Other chronic pain Plan 53 y/o M admitted for Sepsis due to Pneumonia. - Continue close inpatient monitoring. - Received morphine prior to my evaluation. Was started on Precedex due to his respiratory distress and inability to tolerate BiPAP. Will continue to monitor pressures. - ABG pulled this morning and reviewed. - Switch Abx to Vanc and Levofloxacin today to cover Pseudomonas and MRSA. Was recently homeless per nursing. - Check legionella antigen. - Continue fluids for now. MAP currently stable. Start levophed if MAP dips below 65. - Solu-medrol q12h. - Recheck a.m. labs - Blood cultures are pending. Code Status: Full IVF: D5NS @ 100 DVT PPx: Lovenox GI PPx: pepcid ABx: Vanc, Levofloxacin Diet: Clear liquids Discharge plan: TBD Attestations 2 Medical Necessity Statement*: Will need continued inpatient treatment for severe sepsis secondary to PNA with Abx, cultures, fluids, respiratory support. Coding Level of Care Code Acute Code for Chg Fwd High MDM includes number and complexity of problems actively addressed during encounter, amount and/or complexity of data reviewed/ordered and described risk of complication, morbidity or mortality of management as documented Diagnoses Sepsis with acute respiratory failure and septic shock A41.9; R65.21; J96.00 Acute respiratory failure type: with hypoxia Pneumonia of left lower lobe due to infectious organism J18.9 Laterality: left Lung location: lower lobe of lung Pneumonia type: due to unspecified organism Hyponatremia E87.1 Chronic bilateral low back pain without sciatica M54.50; G89.29 Back pain location: low back pain Chronicity: chronic Back pain laterality: bilateral Sciatica presence: without sciatica
[2023-11-07] MEDS: methylPREDNISolone sod succ 125 mg/2 mL INJ 60 MG IVP ×2 (09:07→21:37)
[2023-11-07] MEDS: famotidine 20 mg/2 mL INJ IVP ×2 (09:07→21:37)
--- NOTE | 2023-11-07 09:19 | PC.PHAR ---
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 = 9.6 mcg/ml t1/2 11 hrs Hrs until 20 mcg/ml 1.7 hrs Hrs until 15 mcg/ml 6.1 hours Hrs until 10 mcg/ml 12.4 hours Dose Tau (Freq) Levels expected Standard 1000 12 Cmax 37.5 Targets 16.21 16.0 Cpeak 35.1 25 to 40 mg/kg hours Cmin 19.6 10 to 20
[2023-11-07] MEDS: vancomycin 1,000 MG in sodium chloride 0.9% 250 ML 250 MG IV ×2 (10:03→21:37)
--- NOTE | 2023-11-07 11:21 | PC.NURSE ---
resting at this time on precedex gtt tolerating well at this time less dyspnea off bipap for brief time for sips of po liquid
[2023-11-07 12:26] LABS: Glucose Point of Care 125 mg/dL (70-110)
[2023-11-07] MEDS: sodium chloride 0.9% 500 ML 999 ML IV (12:36)
[2023-11-07] MEDS: norepinephrine 4 MG/250 ML BAG 30 MG IV ×2 (13:12→21:48)
--- NOTE | 2023-11-07 14:36 | PC.NURSE ---
requesting pain medication ... morphine given
--- NOTE | 2023-11-07 15:00 | PC.NURSE ---
Report received from . Care assumed.
--- NOTE | 2023-11-07 19:26 | PC.NURSE ---
Summary: Pt has been resting in bed throughout the shift. He has been short of breath and tachypniec for most of the shift. He is at this time, resting with eyes closed and his respirations are even and deep, and have slowed down to 20-25 bpm. Evening dose of Colace held due to pt sleeping so well. He is still using the BiPap, FIO2 at 40% 24/02. Precedex is infusing at .2 mcg/kg/hr. Levophed now infusing at 8mcg/min. He has had sips of clear liquid drinks throughout the shift, just briefly removing Biapap. mask.
[2023-11-07 19:32] LABS: Glucose Point of Care 157 mg/dL (70-110)
--- NOTE | 2023-11-07 20:15 | PC.NURSE ---
Oxycodone Dr. Tidwell at bedside, patient complaining of pleuritic chest pain during cough episodes. Order received for 5 mg oxycodone IR PO Q6H PRN for pain. See MAR for details.
--- NOTE | 2023-11-07 20:21 | P.MISC_ITS ---
Miscellaneous Note Purpose of Documentation: clinical update Note: 1. Please note patient was homeless in his teenage years he has not been homeless in 40 years. 2. Lab called with positive blood cultu res. They reported strep and strep pneumonia. It is not available in the computer until micro releases. 3. Continue the current antibiotics unt il sensitivities are back. Will most likely be able to de-escalate quickly 4. Patient is much improved since admis nanette yesterday. He is able to lay back a little bit more he is much more calm. 5. Patient is experiencing left pleurit ic chest pain especially with cough. In order to obtain some rest will order oxycodone 5 mg p.o. every 6 hours as needed
[2023-11-07] MEDS: oxyCODONE 5 mg IR Tab/Cap PO (21:34)
[2023-11-07] MEDS: docusate sodium 100 mg Capsule PO (21:34)
[2023-11-07] MEDS: enoxaparin 40 mg/0.4 mL Syringe SUBCUT (21:37)
[2023-11-07] MEDS: sodium chloride 0.9 % (flush) syringe 10 mL IV (21:56)
--- NOTE | 2023-11-07 22:18 | PC.NURSE ---
Upon arrival to shift, patient's precedex infusion was running at 0.2 mcg/kg/hr and MAR did not reflect it, current running rate was then documented.
[2023-11-08] VITALS (108 sets, daily range): BP systolic 87–143; BP diastolic 61–107; PULSE 102–144; RESP 17–48; TEMP 36.7–37.3; O2SAT 90–100; BMI 18.6
[2023-11-08] MEDS: dexmedeTOMIDine 0.9 % NaCL 400 MCG/100 ML PREMIX 3.08000000000000007 MCG IV (01:53)
[2023-11-08] MEDS: levalbuterol 1.25 mg/3 mL Neb INHALATION ×4 (02:26→20:38)
[2023-11-08] MEDS: ipratropium 0.5 mg/2.5 mL Neb INHALATION ×4 (02:27→20:38)
[2023-11-08 04:10] LABS: Procalcitonin 42.39 ng/mL (0-0.5)
[2023-11-08 04:11] LABS: Alanine Aminotransferase 17 U/L (0-41); Albumin Level 2.6 g/dL (3.5-5.2); Alkaline Phosphatase 58 U/L (40-130); Anion Gap 12.9 (5-19); Aspartate Amino Transferase 33 U/L (0-40); Blood Urea Nitrogen 15 mg/dL (6-20); C Reactive Protein 303.7 mg/L (0.0-4.9); Calcium 7.7 mg/dL (8.5-10.5); Carbon Dioxide 22 mmol/L (22-29); Chloride 103 mmol/L (98-107); Creatinine Clr Calc Pharmacy 91.0341; Globulin 2.5 g/dL (1.3-4.6); Glomerular Filtration Rate 100.4 mL/min (90-130); Glucose 179 mg/dL (65-115); Magnesium 1.9 mg/dL (1.7-2.3); Osmolality Calculated 283 mOsm/kg (285-295); Potassium 3.9 mmol/L (3.5-5.1); Sodium 134 mmol/L (136-145); Total Bilirubin 0.2 mg/dL (0.15-1.2); Total Protein 5.1 g/dL (6.6-8.7)
[2023-11-08 04:21] LABS: Basophils # 0.1 10^3/uL (0.0-0.1); Basophils % 0.6 %; Eosinophils # 0.1 10^3/uL (0.0-0.8); Eosinophils % 0.6 %; Hematocrit 30.8 % (37-53); Lymphocytes # 0.3 10^3/uL (0.8-4.8); Lymphocytes % 1.7 %; Mean Corpuscular HGB Conc 33.1 g/dL (30-55); Mean Corpuscular Hemoglobin 30.2 pg (27-33); Mean Corpuscular Volume 91.1 fl (82-101); Mean Platelet Volume 10.1 fL (7.4-10.4); Monocytes # 0.3 10^3/uL (0.2-0.9); Monocytes % 1.3 %; Neutrophils # 18.18 10^3/uL (1.8-7.7); Neutrophils % 95.2 %; Nucleated Red Blood Cells % 0 %; Platelet Count 163 10^3/cmm (157-399); Red Blood Count 3.38 10^6/uL (3.85-5.65); Red Cell Distribution Width 12.2 % (12.1-15.1)
--- NOTE | 2023-11-08 04:40 | PC.NURSE ---
Diet Informed Dr. Tidwell that patient's oxygen needs have decreased, blood sugar was 179 and was still receiving D5 and on a clear liquid diet. Dr. Tidwell gave verbal orders to finish remaining bag of D5 and then DC, and change the patient's diet to regular starting at breakfast.
[2023-11-08] MEDS: morphine 4 mg/mL SDV 1 mL 2 MG IVP ×3 (06:28→20:05)
[2023-11-08 07:34] LABS: Glucose Point of Care 129 mg/dL (70-110)
[2023-11-08] MEDS: oxyCODONE 5 mg IR Tab/Cap PO ×3 (08:17→23:36)
--- NOTE | 2023-11-08 09:13 | CT_ITS ---
WS: [id number] CT CHEST ANGIOGRAPHY WITH REFORMATS HISTORY: hypoxic TECHNIQUE: Contiguous axial images are obtained through the chest during arterial injection of intrav enous contrast. Images are reconstructed to evaluate the pulmonary arteries. MIP imaging also reviewe d. All CT scans at [facility] use at least one of these dose optimization techniques: automat ed exposure control; mA and/or kV adjustment per patient size (includes targeted exams where dose is matched to clinical indication); or iterative reconstruction. CONTRAST: Omnipaque 350; 100 mL IV. DLP: 215.71 mGy.cm COMPARISON: Chest radiographs 11/06/2023 Good opacification of the pulmonary arteries. No pulmonary emboli. Normal size thoracic aorta and pul monary artery. Heart size is slightly enlarged. There is very slight RIGHT heart strain suspected. RI GHT ventricle is dilated. There are filling defects within the LEFT ventricle and the LEFT atrium whi ch may be a mixing of blood but these are more prominent than typically seen. Suggest further evaluat ion by echocardiography to exclude thrombus. More than typically seen for trabecular thickening. There is extensive bullous and paraseptal emphysema. Moderate LEFT pneumothorax. There is very mild s hift of the anterior junctional zone to the RIGHT. No tension pneumothorax at this time. There is a very large area of consolidation previously described which is reidentified in the LEFT rob ng. Dense areas of consolidation without volume loss in nearly the entire LEFT lower lobe. Also opaci fication extends along the fissure and posteriorly in the LEFT upper lobe. Extensive biapical pleural thickening. There is slightly more nodularity involving the effusion in the posterior LEFT upper lob e. This can be reevaluated on follow-up imaging. Mild dependent changes at the RIGHT lung base. Very small RIGHT pleural effusion. Small LEFT pleural effusion. Enlarged hilar lymph nodes measuring up to 1.8 cm. Liver appears enlarged. The spleen is not completely included on this examination but also appears la rge. IMPRESSION: 1. Moderate LEFT pneumothorax. No tension pneumothorax at this time. 2. Large area of dense consolidation within nearly the entire LEFT lower lobe extending along the fi ssure. Additional small layering LEFT pleural effusion. Favor this is pneumonia but continued follow- up to resolution is necessary to exclude underlying neoplasm. 3. Very small RIGHT pleural effusion. 4. There are a few filling defects within the LEFT ventricle and the LEFT atrium. Small thrombi not excluded. Recommend follow-up echocardiogram. 5. Severe chronic emphysema. 6. No pulmonary embolism. 7. Mild RIGHT heart strain. 8. Hilar adenopathy, probably reactive. 9. Although incompletely visualized the liver and spleen are enlarged. Notified Guillaume Esquivel MD at 11/08/2023 11:25 AM.
[2023-11-08] MEDS: vancomycin 1,000 MG in sodium chloride 0.9% 250 ML 250 MG IV (09:16)
[2023-11-08] MEDS: methylPREDNISolone sod succ 125 mg/2 mL INJ 60 MG IVP ×2 (09:16→21:32)
[2023-11-08 09:37] LABS: Mean Corpuscular HGB Conc 34.1 g/dL (30-55); Mean Corpuscular Hemoglobin 30.6 pg (27-33); Mean Corpuscular Volume 89.9 fl (82-101); Mean Platelet Volume 9.7 fL (7.4-10.4); Platelet Count 161 10^3/cmm (157-399); Red Blood Count 3.56 10^6/uL (3.85-5.65); Red Cell Distribution Width 12.1 % (12.1-15.1); White Blood Count 23.37 10^3/uL (3.29-11.43)
[2023-11-08 09:55] LABS: Vancomycin Trough 8.1 ug/mL (10-15)
[2023-11-08 10:51] LABS: Slide Review Slide Review Perform; Total Cells Counted 100 (0-100)
[2023-11-08 10:52] LABS: Absolute Neutrophil 22.2 10^3/cmm (1.4-6.5); Absolute Segmented Neutrophil 19.4 10/cmm (1.6-7.1); Band Neutrophils Absolute 2.8 10^3/cmm (0.0-1.2); Eosinophils 0 %; Lymphocytes 1 %; Lymphocytes Absolute 0.2 10^3/cmm (1.2-3.4); Monocytes Absolute 0.9 10^3/cmm (0.1-0.6); Platelet Estimate Normal (Normal); Segmented Neutrophils 83 %
[2023-11-08] MEDS: iohexol 350 mg/mL 500 mL Btl (per mL) IV (10:57)
[2023-11-08] MEDS: famotidine 20 mg/2 mL INJ IVP ×2 (11:17→21:32)
[2023-11-08] MEDS: sodium chloride 0.9 % (flush) syringe 10 mL IV ×2 (11:19→22:06)
--- NOTE | 2023-11-08 11:43 | P.TS_ITS ---
Transfer Summary Providers Date of Admission: 11/06/23 20:36 Date of Discharge/Transfer: 11/08/23 Attending Provider at Admission: Bob Tidwell DO Attending Provider at Transfer: Guillaume Esquivel MD Transfer Plans: Anticipated date of transfer: 11/08/23 . Diagnoses at Discharge Discharge Diagnosis (1) Sepsis with acute respiratory failure and septic shock: Status: Acute Qualifiers: Acute respiratory failure type: with hypoxia (2) Pneumonia: Status: Acute Qualifiers: Laterality: left Lung location: lower lobe of lung Pneumonia type: due to unspecified organism Qualified Code(s): J18.9 - Pneumonia, unspecified organism (3) Hyponatremia: Status: Acute (4) Back pain: Status: Chronic Qualifiers: Back pain location: low back pain Chronicity: chronic Back pain laterality: bilateral Sciatica presence: without sciatica Qualified Code(s): M54.50 - Low back pain, unspecified; G89.29 - Other chronic pain Reason for Visit Reason for Visit CHEST PAIN TS Data Studies Completed and Pending Pending at discharge Category Date Time Status Basic Metabolic Panel AM LABS Lab 11/09/23 04:00 Ordered Blood Culture Routine Lab 11/08/23 03:30 Results Blood Culture Stat Lab 11/06/23 18:55 Results Complete Blood Count w/Auto DAILY Lab 11/09/23 10:00 Ordered Completed Studies During Hospitalization Category Date Time Status CTA PE [CT angio chest PE protcl [id number]] Stat Cat Scan 11/08/23 09:13 Completed XR chest 1V portable [id number] Stat Exams 11/06/23 18:33 Completed XR chest 1V portable [id number] Stat Exams 11/06/23 21:18 Completed Laboratory Last Values WBC 23.37 10^3/uL (3.29-11.43) H 11/08/23 09:16 RBC 3.56 10^6/uL (3.85-5.65) L 11/08/23 09:16 Hgb 10.90 g/dL (11.27-16.99) L 11/08/23 09:16 Hct 32.0 % (37-53) L 11/08/23 09:16 MCV 89.9 fl (82-101) 11/08/23 09:16 MCH 30.6 pg (27-33) 11/08/23 09:16 MCHC 34.1 g/dL (30-55) 11/08/23 09:16 RDW 12.1 % (12.1-15.1) 11/08/23 09:16 Plt Count 161 10^3/cmm (157-399) 11/08/23 09:16 MPV 9.7 fL (7.4-10.4) 11/08/23 09:16 Neut % (Auto) 95.2 % 11/08/23 03:30 Lymph % (Auto) Not Reportable 11/08/23 09:16 [place] % (Auto) Not Reportable 11/08/23 09:16 Eos % (Auto) 0.6 % 11/08/23 03:30 Baso % (Auto) 0.6 % 11/08/23 03:30 Neut # (Auto) 18.18 10^3/uL (1.8-7.7) H 11/08/23 03:30 Lymph # (Auto) Not Reportable 11/08/23 09:16 [place] # (Auto) Not Reportable 11/08/23 09:16 Eos # (Auto) 0.1 10^3/uL (0.0-0.8) 11/08/23 03:30 Baso # (Auto) 0.1 10^3/uL (0.0-0.1) 11/08/23 03:30 Nucleated RBC % (auto) 0 % 11/08/23 03:30 Total Counted 100 (0-100) 11/08/23 09:16 Atypical Lymphs % 0.0 % (0-5) 11/08/23 09:16 Absolute Neutrophils 22.2 10^3/cmm (1.4-6.5) H 11/08/23 09:16 Segmented Neutrophils 83 % 11/08/23 09:16 Abs Segm Neuts (Man) 19.4 10/cmm (1.6-7.1) H 11/08/23 09:16 Band Neutrophils 12.0 % 11/08/23 09:16 Abs Band Neuts (Man) 2.8 10^3/cmm (0.0-1.2) H 11/08/23 09:16 Absolute Lymphocytes 0.2 10^3/cmm (1.2-3.4) L 11/08/23 09:16 Lymphocytes (Manual) 1 % 11/08/23 09:16 Monocytes (Manual) 4.0 % 11/08/23 09:16 Absolute Monocytes 0.9 10^3/cmm (0.1-0.6) H 11/08/23 09:16 Eosinophils (Manual) 0 % 11/08/23 09:16 Absolute Eosinophils 0.0 10^3/cmm (0.0-0.7) 11/08/23 09:16 Basophils (Manual) 0.0 % 11/08/23 09:16 Absolute Basophils 0.0 10^3/cmm (0.0-0.2) 11/08/23 09:16 Nucleated RBCs # 0.0 /100WBC 11/08/23 03:30 Platelet Estimate Normal (Normal) 11/08/23 09:16 D-Dimer 0.54 ug/mLFEU (0-0.59) 11/06/23 18:39 Specimen Type Arterial 11/07/23 08:07 Sample Site Brachial, right 11/07/23 08:07 ABG pH 7.36 (7.35-7.45) 11/07/23 08:07 ABG pCO2 36.4 mmHg (35-45) 11/07/23 08:07 ABG pO2 80.6 mmHg (80.0-100.0) 11/07/23 08:07 ABG PO2/FiO2 Ratio 0 11/07/23 08:07 ABG HCO3 20.4 mmol/L (22-26) L 11/07/23 08:07 ABG Base Excess -4.5 mmol/L (-2.0-2.0) L 11/07/23 08:07 Shakir Test N/a 11/07/23 08:07 Hematocrit 37.5 % (42-52) L 11/07/23 08:07 O2 Delivery Device Bipap 11/07/23 08:07 FiO2 70.0 % 11/07/23 08:07 Car Hop ID Gd 11/07/23 08:07 Sodium 134 mmol/L (136-145) L 11/08/23 03:30 Potassium 3.9 mmol/L (3.5-5.1) 11/08/23 03:30 Chloride 103 mmol/L (98-107) 11/08/23 03:30 Carbon Dioxide 22 mmol/L (22-29) 11/08/23 03:30 Anion Gap 12.9 (5-19) 11/08/23 03:30 BUN 15 mg/dL (6-20) 11/08/23 03:30 Creatinine 0.8 mg/dL (0.7-1.2) 11/08/23 03:30 GFR Calculation 100.4 mL/min (90-130) 11/08/23 03:30 Glucose 179 mg/dL (65-115) H 11/08/23 03:30 POC Glucose 129 mg/dL (70-110) H 11/08/23 07:17 Calculated Osmolality 283 mOsm/kg (285-295) L 11/08/23 03:30 Lactic Acid 6.2 mmol/L (0.5-2.2) H* 11/06/23 18:39 Lactic Acid (Sepsis) 3.9 mmol/L (0.5-2.2) H 11/06/23 21:48 Lactate 3.3 mmol/L (0.5-2.2) H 11/07/23 01:15 Calcium 7.7 mg/dL (8.5-10.5) L 11/08/23 03:30 Magnesium 1.9 mg/dL (1.7-2.3) 11/08/23 03:30 Total Bilirubin 0.2 mg/dL (0.15-1.2) 11/08/23 03:30 AST 33 U/L (0-40) 11/08/23 03:30 ALT 17 U/L (0-41) 11/08/23 03:30 Alkaline Phosphatase 58 U/L (40-130) 11/08/23 03:30 Creatine Kinase 246 U/L (39-308) 11/06/23 18:39 Troponin T Baseline 13 ng/L (0-15) 11/06/23 18:39 Troponin T 120 Minute 10.36 ng/L (0-15) 11/06/23 19:49 Delta Troponin T -2.64 ABS# (0-10) L 11/06/23 19:49 Troponin T Hi Sens 6Hr 18.04 ng/L (0-15) H 11/07/23 01:15 Troponin T Hi Sens 6Hr Delta 5.04 ng/L (0-12) 11/07/23 01:15 C-Reactive Protein 303.7 mg/L (0.0-4.9) H 11/08/23 03:30 Total Protein 5.1 g/dL (6.6-8.7) L 11/08/23 03:30 Albumin 2.6 g/dL (3.5-5.2) L 11/08/23 03:30 Globulin 2.5 g/dL (1.3-4.6) 11/08/23 03:30 Lipase 6 U/L (13-60) L 11/06/23 18:39 Procalcitonin 42.39 ng/mL (0-0.5) H 11/08/23 03:30 Urine Color Yellow (Yellow) 11/06/23 20:10 Urine Appearance Sl hazy (CLEAR) A 11/06/23 20:10 Urine pH 5 (5-7) 11/06/23 20:10 Ur Specific [place] 1.010 (1.005-1.030) 11/06/23 20:10 Urine Protein 1+ (Negative) H 11/06/23 20:10 Urine Glucose (UA) Norm (Normal) 11/06/23 20:10 Urine Ketones 1+ (Negative) H 11/06/23 20:10 Urine Blood 3+ (Negative) H 11/06/23 20:10 Urine Nitrate Negative (Negative) 11/06/23 20:10 Urine Bilirubin Neg (Negative) 11/06/23 20:10 Urine Urobilinogen Norm mg/dL (Negative) 11/06/23 20:10 Ur Leukocyte Esterase Negative (Negative) 11/06/23 20:10 Urine RBC 0-4 /hpf (0-2) H 11/06/23 20:10 Urine WBC 0-4 /hpf (0-5) H 11/06/23 20:10 Ur Squamous Epith Cells 0-4 /hpf (0-5) H 11/06/23 20:10 Amorphous Sediment Trace /hpf 11/06/23 20:10 Urine Bacteria 2+ /hpf (NONE) H 11/06/23 20:10 Hyaline Casts 0-4 /lpf H 11/06/23 20:10 Coarse Granular Casts 0-4 /lpf H 11/06/23 20:10 Vancomycin Trough 8.1 ug/mL (10-15) L 11/08/23 09:16 Urine Opiates Screen Negative ng/mL (Negative) 11/06/23 20:10 Ur Barbiturates Screen Negative ng/mL (Negative) 11/06/23 20:10 Ur Phencyclidine Scrn Negative ng/mL (Negative) 11/06/23 20:10 Ur Amphetamines Screen Negative ng/mL (Negative) 11/06/23 20:10 U Benzodiazepines Scrn Negative ng/mL (Negative) 11/06/23 20:10 Urine Cocaine Screen Negative ng/mL (Negative) 11/06/23 20:10 U Marijuana (THC) Screen Negative ng/mL (Negative) 11/06/23 20:10 Adenovirus (PCR) Not detected (NOT DETECT) 11/06/23 18:40 C. pneumoniae DNA (PCR) Not detected (NOT DETECT) 11/06/23 18:40 Coronavirus 229E (PCR) Not detected (NOT DETECT) 11/06/23 18:40 Human Metapneumovir PCR Not detected (NOT DETECT) 11/06/23 18:40 Influenza A (H1) PCR Not detected (NOT DETECT) 11/06/23 18:40 Influ A (H1/09) PCR Not detected (NOT DETECT) 11/06/23 18:40 Influenza A (H3) PCR Not detected (NOT DETECT) 11/06/23 18:40 Influenza Type A (PCR) Not detected (NOT DETECT) 11/06/23 18:40 Influenza Type B (PCR) Not detected (NOT DETECT) 11/06/23 18:40 M. pneumoniae (PCR) Not detected (NOT DETECT) 11/06/23 18:40 Parainfluenza 1 (PCR) Not detected (NOT DETECT) 11/06/23 18:40 Parainfluenza 2 (PCR) Not detected (NOT DETECT) 11/06/23 18:40 Parainfluenza 3 (PCR) Not detected (NOT DETECT) 11/06/23 18:40 Parainfluenza 4 (PCR) Not detected (NOT DETECT) 11/06/23 18:40 RSV Type A (PCR) Not detected (NOT DETECT) 11/06/23 18:40 RSV Type B (PCR) Not detected (NOT DETECT) 11/06/23 18:40 Entero/Rhino (PCR) Not detected (NOT DETECT) 11/06/23 18:40 SARS-CoV-2 (PCR) Not detected (NOT DETECT) 11/06/23 18:40 Radiology Impressions Chest X-Ray 11/06/23 21:18 IMPRESSION: 1. New right internal jugular venous catheter terminating in the region of the cavoatrial junction. 2. Otherwise stable radiographic appearance of the chest. Recent Clincial Data Last Vital Signs Temp 99.1 F 11/08/23 08:15 Pulse 144 H 11/08/23 10:00 Resp 37 H 11/08/23 10:00 BP 120/92 11/08/23 10:00 Pulse Ox 90 11/08/23 10:00 O2 Del Method Nasal Cannula 11/08/23 08:15 O2 Flow Rate 2 11/08/23 08:15 FiO2 30 11/08/23 02:27 Vital Signs Temp Pulse Resp BP Pulse Ox O2 Del Method O2 Flow Rate 11/08/23 10:00 144 H 37 H 120/92 90 11/08/23 09:45 126 H 28 H 120/92 96 11/08/23 09:30 127 H 27 H 96 11/08/23 09:15 131 H 35 H 95 11/08/23 09:00 122/86 11/08/23 08:45 122/86 11/08/23 08:30 139 H 21 H 118/85 99 11/08/23 08:17 33 H 11/08/23 08:15 99.1 F 139 H 32 H 111/86 96 Nasal Cannula 2 11/08/23 08:00 138 H 30 H 106/83 96 11/08/23 07:45 133 H 24 H 113/81 94 11/08/23 07:42 137 H 11/08/23 07:30 132 H 29 H 132/93 94 11/08/23 07:29 130 H 18 93 Nasal Cannula 2 11/08/23 07:15 144 H 22 H 111/71 90 11/08/23 07:00 130 H 21 H 109/74 93 11/08/23 06:45 130 H 27 H 124/84 95 11/08/23 06:30 133 H 25 H 124/84 94 Room Air 11/08/23 06:28 27 H 93 11/08/23 06:15 142 H 27 H 110/79 92 Room Air 11/08/23 06:00 135 H 26 H 106/76 93 Room Air 11/08/23 05:45 129 H 26 H 104/75 93 Room Air 11/08/23 05:30 126 H 25 H 100/72 94 Room Air 11/08/23 05:30 130 H 11/08/23 05:15 129 H 24 H 103/74 93 Room Air 11/08/23 05:00 127 H 25 H 98/68 94 Room Air 11/08/23 04:45 124 H 22 H 116/81 97 Room Air 11/08/23 04:30 134 H 25 H 99/64 94 Room Air 11/08/23 04:15 120 H 22 H 93/67 98 11/08/23 04:00 124 H 25 H 112/71 100 11/08/23 03:51 99.2 F 123 H 20 H 112/71 100 Nasal Cannula 4 11/08/23 03:45 126 H 23 H 96/61 99 11/08/23 03:30 122 H 30 H 93/66 100 11/08/23 03:15 109 H 23 H 98/73 100 11/08/23 03:00 103 H 20 H 102/71 100 11/08/23 02:45 120 H 27 H 101/64 99 11/08/23 02:30 106 H 22 H 95/64 100 11/08/23 02:27 105 H 24 H 100 BiPAP 11/08/23 02:15 109 H 24 H 93/67 100 11/08/23 02:00 108 H 22 H 113/78 100 11/08/23 01:45 110 H 29 H 93/66 100 11/08/23 01:30 104 H 22 H 97/67 100 11/08/23 01:15 105 H 23 H 96/65 100 11/08/23 01:00 111 H 24 H 98/66 100 11/08/23 00:45 118 H 25 H 87/67 99 11/08/23 00:38 102 H 100 11/08/23 00:30 111 H 27 H 106/74 100 11/08/23 00:15 107 H 26 H 101/75 100 11/08/23 00:00 98.8 F 113 H 25 H 98/69 100 11/07/23 23:45 121 H 31 H 104/70 100 FiO2 11/08/23 10:00 11/08/23 09:45 11/08/23 09:30 11/08/23 09:15 11/08/23 09:00 11/08/23 08:45 11/08/23 08:30 11/08/23 08:17 11/08/23 08:15 11/08/23 08:00 11/08/23 07:45 11/08/23 07:42 11/08/23 07:30 11/08/23 07:29 11/08/23 07:15 11/08/23 07:00 11/08/23 06:45 11/08/23 06:30 11/08/23 06:28 11/08/23 06:15 11/08/23 06:00 11/08/23 05:45 11/08/23 05:30 11/08/23 05:30 11/08/23 05:15 11/08/23 05:00 11/08/23 04:45 11/08/23 04:30 11/08/23 04:15 11/08/23 04:00 11/08/23 03:51 11/08/23 03:45 11/08/23 03:30 11/08/23 03:15 11/08/23 03:00 11/08/23 02:45 11/08/23 02:30 11/08/23 02:27 30 11/08/23 02:15 11/08/23 02:00 11/08/23 01:45 11/08/23 01:30 11/08/23 01:15 11/08/23 01:00 11/08/23 00:45 11/08/23 00:38 30 11/08/23 00:30 11/08/23 00:15 11/08/23 00:00 11/07/23 23:45 Intake & Output/Weight 11/06/23 11/07/23 11/08/23 11/09/23 06:59 06:59 06:59 06:59 Intake Total 3577.375 / 3577.375 6173.245 / 6173.245 490 / 490 Output Total 1325 / 1325 1850 / 1850 325 / 325 Balance 2252.375 / 2252.375 4323.245 / 4323.245 165 / 165 Weight 61.689 kg 63.985 kg Vitals Last Vital Signs Temp 99.1 F 11/08/23 08:15 Pulse 144 H 11/08/23 10:00 Resp 37 H 11/08/23 10:00 BP 120/92 11/08/23 10:00 Pulse Ox 90 11/08/23 10:00 O2 Del Method Nasal Cannula 11/08/23 08:15 O2 Flow Rate 2 11/08/23 08:15 FiO2 30 11/08/23 02:27 TS Medications Medications Acetaminophen (Acetaminophen 325 Mg Tablet) 650 mg PO Q6H PRN PRN Reason: MILD PAIN Docusate Sodium (Docusate Sodium 100 Mg Capsule) 100 mg PO BID [facility] Last Admin: 11/08/23 08:13 Dose: Not Given Enoxaparin Sodium (Enoxaparin 40 Mg/0.4 Ml Syringe) 40 mg SUBCUT Q24H [facility] Last Admin: 11/07/23 21:37 Dose: 40 mg Famotidine (Famotidine 20 Mg/2 Ml Inj) 20 mg IVP Q12H [facility] Last Admin: 11/08/23 11:17 Dose: 20 mg Heparin Sodium (Porcine) (Heparin Lock Flush 500 Unit/5 Ml Syringe) 200 - 500 unit IV PRN PRN PRN Reason: Central line flush Heparin Sodium (Porcine) (Heparin Lock Flush 500 Unit/5 Ml Syringe) 200 - 500 unit IV Q12H [facility] Last Admin: 11/08/23 11:17 Dose: 500 unit norepinephrine (Levophed) 4 mg in 250 mls @ 0 mls/hr IV .Q0M [facility]; Protocol Last Titration: 11/08/23 08:53 Dose: Infused Dextrose (D10w) 125 mls @ 750 mls/hr IV PRN PRN; Protocol PRN Reason: Adult DKA Hypoglycemia Nursing Protocol Last Infusion: 11/07/23 06:46 Dose: Infused Dextrose (D10w) 250 mls @ 1,000 mls/hr IV PRN PRN; Protocol PRN Reason: Adult DKA Hypoglycemia Nursing Protocol Vancomycin/PEG/NADA/Lysine/Water (Vancocin) 1,250 mg in 250 mls @ 250 mls/hr IV Q12H [facility] Ipratropium [place] (Ipratropium 0.5 Mg/2.5 Ml Neb) 0.5 mg INHALATION Q6H.RESP [facility] Last Admin: 11/08/23 07:29 Dose: 0.5 mg Levalbuterol HCl (Levalbuterol 1.25 Mg/3 Ml Neb) 1.25 mg INHALATION Q6H.RESP [facility] Last Admin: 11/08/23 07:29 Dose: 1.25 mg Lidocaine HCl (Lidocaine 1% Inj 10 Ml (Per Ml)) 0.1 ml INTRADERMA PRN PRN PRN Reason: Anesthetic Catheter Placement Lorazepam (Lorazepam 2 Mg/Ml Inj 10 Ml Mdv) 0.5 mg IVP Q8H PRN PRN Reason: ANXIETY Last Admin: 11/07/23 02:27 Dose: 0.5 mg Methylprednisolone Sodium Succinate (Methylprednisolone Sod Succ 125 Mg/2 Ml Inj) 60 mg IVP Q12H [facility] Last Admin: 11/08/23 09:16 Dose: 60 mg Morphine Sulfate (Morphine 4 Mg/Ml Sdv 1 Ml) 2 mg IVP Q4H 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 Last Admin: 11/08/23 06:28 Dose: 2 mg Ondansetron HCl (Ondansetron 2 Mg/Ml Sdv 2 Ml) 4 mg IVP Q6H PRN PRN Reason: NAUSEA AND VOMITING Oxycodone HCl (Oxycodone 5 Mg Ir Tab/Cap) 5 mg PO Q6H PRN PRN Reason: MODERATE PAIN Last Admin: 11/08/23 08:17 Dose: 5 mg Sodium Chloride (Sodium Chloride 0.9 % (Flush) Syringe 10 Ml) 5 - 10 ml IV PRN PRN PRN Reason: Central line flush Sodium Chloride (Sodium Chloride 0.9 % (Flush) Syringe 10 Ml) 5 - 10 ml IV Q12H [facility] Last Admin: 11/08/23 11:19 Dose: 10 ml Discontinued Medications Sodium Chloride (Sodium Chloride 0.9%) 1,000 mls @ 999 mls/hr IV .Q1H1M [facility] Stop: 11/06/23 20:45 Last Infusion: 11/06/23 21:00 Dose: Infused Sodium Chloride (Sodium Chloride 0.9% (100 Ml)) Confirm Administered Dose 400 mls @ as directed .ROUTE .STK-MED ONE Stop: 11/06/23 18:40 Last Admin: 11/06/23 18:45 Dose: Not Given Piperacillin Sod/Tazobactam (Sod 4.5 gm/ Sodium Chloride) 50 mls @ 100 mls/hr IV ONCE ONE; Protocol Stop: 11/06/23 19:51 Last Infusion: 11/06/23 19:56 Dose: Infused Vancomycin HCl 1,000 mg/ (Sodium Chloride) 250 mls @ 250 mls/hr IV ONCE ONE; Protocol Stop: 11/06/23 20:53 Last Admin: 11/06/23 21:15 Dose: Not Given Vancomycin HCl 1,000 mg/ (Sodium Chloride) 250 mls @ 250 mls/hr IV ONCE ONE; Protocol Stop: 11/06/23 22:00 Last Infusion: 11/07/23 07:13 Dose: Infused Sodium Chloride (Sodium Chloride 0.9%) 1,000 mls @ 250 mls/hr IV .Q4H [facility] Last Admin: 11/07/23 07:23 Dose: Not Given Azithromycin 500 mg/ Sodium (Chloride) 250 mls @ 250 mls/hr IV Q24H [facility]; Protocol Last Infusion: 11/07/23 01:16 Dose: Infused Ceftriaxone Sodium 1,000 mg/ (Sodium Chloride) 50 mls @ 100 mls/hr IV Q24H [facility]; Protocol Last Infusion: 11/07/23 01:16 Dose: Infused Dextrose/Sodium Chloride (Dextrose 5%-Sod Chloride 0.9%) 1,000 mls @ 100 mls/hr IV .Q10H [facility] Last Admin: 11/08/23 08:53 Dose: Not Given Dexmedetomidine/Sodium Chloride (Precedex) 400 mcg in 100 mls @ 0 mls/hr IV .Q0M [facility]; Protocol Last Titration: 11/08/23 04:59 Dose: 0 mcg/kg/hr, 0 mls/hr Levofloxacin/Dextrose (Levaquin-D5w) 750 mg in 150 mls @ 100 mls/hr IV ONCE ONE; Protocol Stop: 11/07/23 09:38 Last Infusion: 11/07/23 09:53 Dose: Infused Vancomycin HCl 1,000 mg/ (Sodium Chloride) 250 mls @ 250 mls/hr IV Q12H [facility] Last Infusion: 11/08/23 10:16 Dose: Infused Sodium Chloride (Sodium Chloride 0.9%) 500 mls @ 999 mls/hr IV .Q31M ONE Stop: 11/07/23 12:58 Last Infusion: 11/07/23 13:12 Dose: Infused Iohexol (Iohexol 350 Mg/Ml 500 Ml Btl (Per Ml)) 0 ml IV ONCE ONE Stop: 11/08/23 10:57 Last Admin: 11/08/23 10:57 Dose: 45 ml Methylprednisolone Sodium Succinate (Methylprednisolone Sod Succ 40 Mg/Ml Inj) 40 mg IVP Q24H [facility] Last Admin: 11/07/23 05:39 Dose: 40 mg Midazolam HCl (Midazolam 1 Mg/Ml Inj 2 Ml) 2 mg IVP ONCE ONE Stop: 11/08/23 11:42 Vancomycin HCl (Vancomycin 1,000 Mg Sdv) Confirm Administered Dose 1,000 mg .ROUTE .STK-MED ONE Stop: 11/07/23 10:02 Last Admin: 11/07/23 10:13 Dose: Not Given Allergies No Known Allergies Allergy (Verified 11/06/23 18:36) Home Medications amitriptyline 25 mg tablet 25 mg PO DAILY 11/07/23 [History Confirmed 11/07/23] gabapentin 300 mg capsule 300 mg PO TID 11/07/23 [History Confirmed 11/07/23] meloxicam 15 mg tablet 15 mg PO DAILY 11/07/23 [History Confirmed 11/07/23] methocarbamol 750 mg tablet 750 mg PO TID PRN Pain 11/07/23 [History Confirmed 11/07/23] Discharge Plan Discharge Patient Disposition: Home Condition: Critical Prescriptions: No Action gabapentin 300 mg capsule 300 mg PO TID amitriptyline 25 mg tablet 25 mg PO DAILY meloxicam 15 mg tablet 15 mg PO DAILY methocarbamol 750 mg tablet 750 mg PO TID PRN (Reason: Pain) Patient Instructions: Opioid Safety, Pain Management Coding Level of Care Code Acute Code for [facility] Diagnoses Sepsis with acute respiratory failure and septic shock A41.9; R65.21; J96.00 Acute respiratory failure type: with hypoxia Pneumonia of left lower lobe due to infectious organism J18.9 Laterality: left Lung location: lower lobe of lung Pneumonia type: due to unspecified organism Hyponatremia E87.1 Chronic bilateral low back pain without sciatica M54.50; G89.29 Back pain location: low back pain Chronicity: chronic Back pain laterality: bilateral Sciatica presence: without sciatica
--- NOTE | 2023-11-08 11:53 | P.PN_ITS ---
Subjective 2 Subjective: Arranged transfer, patient has not been accepted, they are saying that they would have a waiting list of MedSurg patient but do not have any beds in ICU I have called [facility] Requested CTA chest when he was tachycardic with hypoxia Patient stating that he has lost 50 pounds last 3 months CTA rule out PE showing left-sided pneumothorax, he has a right-sided IJ Requested ER physician for Thora vent placement, Patient EKG showing sinus tachycardia Vitals/I&O/Wt Last Vital Signs Temp 99.1 F 11/08/23 08:15 Pulse 144 H 11/08/23 10:00 Resp 37 H 11/08/23 10:00 BP 120/92 11/08/23 10:00 Pulse Ox 90 11/08/23 10:00 O2 Del Method Nasal Cannula 11/08/23 08:15 O2 Flow Rate 2 11/08/23 08:15 FiO2 30 11/08/23 02:27 11/07/23 11/08/23 11/08/23 22:59 06:59 14:59 Intake Total 1384.28 / 3751.590 2421.655 / 6173.245 490 / 490 Output Total 600 / 600 1250 / 1850 325 / 325 Balance 784.28 / 3151.590 1171.655 / 4323.245 165 / 165 Weight last 48 hrs Weight 63.985 kg Weight 61.689 kg Weight 60.963 kg Weight 61.235 kg Physical Exam 2 Narrative: Tachycardic Sinus tachycardia Cachectic, malnourished GCS 15 Nonfocal neuroexam at the bedside Abdomen soft Pleasant cooperative Data 11/08/23 09:16 11/08/23 03:30 Micro: Microbiology 11/06/23 20:10 Urine Culture - Final Urine,Clean Catch 11/06/23 18:55 Blood Culture - Preliminary Blood Streptococcus pneumoniae 11/06/23 18:55 Blood Culture - Preliminary Blood Streptococcus pneumoniae 11/08/23 03:30 Blood Culture - Preliminary Blood SPECIMEN COLLECTED 11/08/23 03:29 Blood Culture - Preliminary Blood SPECIMEN COLLECTED 11/07/23 08:10 Legionella Urinary Antigen - Final Urine,Voided A&P Assessment and plan (1) Sepsis with acute respiratory failure and septic shock: Qualifiers: Acute respiratory failure type: with hypoxia (2) Pneumonia: Qualifiers: Laterality: left Lung location: lower lobe of lung Pneumonia type: due to unspecified organism Qualified Code(s): J18.9 - Pneumonia, unspecified organism (3) Hyponatremia: (4) Sinus tachycardia: Plan New left-sided pneumothorax Patient has a central line on right IJ Spontaneous pneumothorax Asked ER physician Dr. Kumar for Thora vent placement Patient will need to be transferred for chest tube management Will keep his chest tube to suction Repeat x-ray For tachycardia I will put him on low-dose Cardizem This is likely related pneumothorax Blood pressure stable Off Levophed Septic shock resolving Monitor for any signs of tension pneumothorax Continue steroids Significant local cytosis continue IV antibiotic Patient is full code at the bedside All questions answered Called [facility] there is telling me that they do not have a bed for next 24 hours Attestations 2 Medical Necessity Statement*: Continue ICU management Diagnoses Sepsis with acute respiratory failure and septic shock A41.9; R65.21; J96.00 Acute respiratory failure type: with hypoxia Pneumonia of left lower lobe due to infectious organism J18.9 Laterality: left Lung location: lower lobe of lung Pneumonia type: due to unspecified organism Hyponatremia E87.1 Sinus tachycardia R00.0
[2023-11-08] MEDS: fentaNYL 50 mcg/mL INJ 2mL 25 MCG IVP (12:16)
[2023-11-08] MEDS: midazolam 1 mg/mL INJ 2 mL 3 MG IVP (12:17)
--- NOTE | 2023-11-08 12:35 | PM.CCN ---
Critical Care Event Note The high probability of a clinically significant, sudden or life threatening deterioration of the patient's respiratory system(s) required my full and direct attention, intervention and personal management. The critical care time is as shown. This time is in addition to time spent performing any reported procedures but includes the following: [x] Data and vital sign review and interpretation [x] Patient assessment, examination and intervention [x] Documentation [x] Medication orders and management Critical Care Time Code activated: No Critical Care Time (min): 30 Procedures Chest Tube^ Chest Tube 1: Chest tube location: Anterior Chest Chest tube procedure: Yes betadine prep and sterile drapes applied Tube sutured to skin: Yes Anesthesia: 1% Lidocaine Incision made with: #11 blade Post procedure: sterile dressing applied Chandler of air heard: Yes Tube Drainage: fluid Amount of initial drainage (ml): 10 Post procedure CXR?: Yes Patient tolerated procedure: Yes Progress: Thoracic vent placed and anterior chest wall midclavicular line. Done under conscious sedation. Prior to constant sedation consent obtained from the patient. Area was anesthetized with lidocaine at the skin and then injected down into the pleura confirmed by aspirating air then pulling back and injecting as it withdrawing. Skin was prepped with Betadine. 11 blade incision was made trocar of the thoracic vent introduced popping sensation was felt. Pigtail was advanced over the trocar and then removed the chandler of air was noted using the one-way T valve was able to aspirate approximately 400 mL of air and 10 to 15 mL of semipurulent serosanguineous fluid. Attached to Pleur-evac postprocedure chest x-ray obtained. Appears to be fully expanded. Coding Level of Care Code Acute Code for Chg Fwd
--- NOTE | 2023-11-08 13:25 | ECG_ITS ---
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 Measurements Intervals [place] Rate: 129 P: 55 ND: 137 QRS: 25 QRSD: 102 T: 43 QT: 300 QTc: 439 Interpretive Statements SINUS TACHYCARDIA NONSPECIFIC T-WAVE ABNORMALITY ABNORMAL RHYTHM ECG Compared to ECG 11/07/2023 08:10:54 T-wave abnormality now present Electronically Signed On 11-09-2023 1:01:01 PLAYBACK OPERATOR by Sharmin Barboza M.D. [id number]
--- NOTE | 2023-11-08 13:45 | XR_ITS ---
WS: [id number] Exam: XR chest 1V portable [id number] Date/Time of Exam: 11/08/2023 1:45 PM Reason For Exam: Pneumothorax Compared to chest CT performed earlier on the same day as well as prior chest x-ray 11/06/2023. A small bore LEFT chest tube has been placed. The LEFT lung appears to be fully inflated. There is in filtrate in the mid and lower LEFT lung with LEFT basal pleural effusion. There is also mild infiltra te and plaque atelectasis in the RIGHT base. Heart size is normal. The mediastinum is normal in conto ur. Fibrous scarring in both lung apices. A right-sided IJ catheter ends in the lower one third of th e SVC in good position. Normal bony structures. IMPRESSION: 1. Small bore LEFT chest tube in place. The LEFT lung appears to be fully expanded. 2. Infiltrate in the mid and lower LEFT lung and moderate size LEFT basal pleural effusion. There is also mild infiltrate in the RIGHT base. 3. RIGHT IJ catheter in satisfactory location.
--- NOTE | 2023-11-08 14:07 | PC.NURSE ---
Presented to ICU to assist with troubleshooting the Pleur-x drain to this patient. It appears to be patent and draining, however the chamber is constantly bubbling as though there's a leak. I removed water from the suction chamber in an attempt to correct it, however it continues to bubble. I replaced the unit completely with the same result. While looking over all connections, the bubbling slowed in the leak chamber, but was still bubbling in the suction chamber. There was fluctuation in the drainage inside the tubing connected to the Pleur-x and it appeared to be draining normally. The bubbling slowed in the suction chamber with no evident bubbling in the leak chamber. Patient continues to c/o pain in his chest. Marquise Cooper RN at bedside administering PRN pain medication and radiology present for CXR.
[2023-11-08 14:44] LABS: Appearance, Pleural Fluid CLOUDY (CLEAR); Color, Pleural Fluid Slight Pink (Pale Yellow); Cyto Order Verification No Order; Left Pleural Fluid Analysis LEFT CONSOLIDATION; PATH Referral YES
[2023-11-08 14:45] LABS: Fluid Laterality LEFT PLEURAL FLUID
[2023-11-08 14:57] LABS: Mononuclear %, Pleural Fluid 6 %; Mononuclear, Pleural Fluid # 4.699 10^3/uL; Polynuclear Cells, Pleural # 72.008 10^3/uL; Polynuclear Cells, Pleural % 94 %
[2023-11-08 15:34] LABS: LDH Pleural Fluid 1359 U/L
[2023-11-08] MEDS: dilTIAZem ER (12HR) 60 mg Capsule PO (17:53)
[2023-11-08] MEDS: enoxaparin 60 mg/0.6 mL Syringe SUBCUT (19:29)
[2023-11-08] MEDS: vancomycin 1,250 MG/250 ML PIGGYBACK 250 MG IV (21:30)
[2023-11-08 22:09] LABS: Glucose Point of Care 134 mg/dL (70-110)
[2023-11-09] VITALS (38 sets, daily range): BP systolic 108–124; BP diastolic 75–85; PULSE 83–125; RESP 17–33; TEMP 36.8; O2SAT 60–99; BMI 17.9
[2023-11-09] MEDS: ipratropium 0.5 mg/2.5 mL Neb INHALATION ×2 (01:33→08:00)
[2023-11-09] MEDS: levalbuterol 1.25 mg/3 mL Neb INHALATION ×2 (01:33→08:00)
[2023-11-09 03:31] LABS: Basophils # 0.1 10^3/uL (0.0-0.1); Basophils % 0.2 %; Hematocrit 31.3 % (37-53); Lymphocytes # 0.3 10^3/uL (0.8-4.8); Lymphocytes % 1.4 %; Mean Corpuscular HGB Conc 33.5 g/dL (30-55); Mean Corpuscular Hemoglobin 29.9 pg (27-33); Mean Corpuscular Volume 89.2 fl (82-101); Monocytes # 0.7 10^3/uL (0.2-0.9); Neutrophils # 20.77 10^3/uL (1.8-7.7); Neutrophils % 94.7 %; Nucleated Red Blood Cells % 0 %; Platelet Count 177 10^3/cmm (157-399); Red Blood Count 3.51 10^6/uL (3.85-5.65); Red Cell Distribution Width 12.1 % (12.1-15.1); White Blood Count 21.94 10^3/uL (3.29-11.43)
[2023-11-09 03:57] LABS: Lactate (Lactic Acid level) 1.8 mmol/L (0.5-2.2)
[2023-11-09 03:58] LABS: Anion Gap 12.6 (5-19); Blood Urea Nitrogen 17 mg/dL (6-20); Calcium 8.5 mg/dL (8.5-10.5); Carbon Dioxide 26 mmol/L (22-29); Chloride 103 mmol/L (98-107); Creatinine Clr Calc Pharmacy 107.9112; Glomerular Filtration Rate 117.1 mL/min (90-130); Glucose 178 mg/dL (65-115); Osmolality Calculated 292 mOsm/kg (285-295); Potassium 3.6 mmol/L (3.5-5.1); Sodium 138 mmol/L (136-145)
[2023-11-09 04:07] LABS: Slide Review Slide Review Perform
--- NOTE | 2023-11-09 05:00 | PC.NURSE ---
Transfer Autumn Yi with the transfer center for [facility] called and relayed information regarding patient's transfer: patient accepted by Dr. Viera into the [facility] stepdown unit to [address] Garcia notified and order received to allow patient to travel by ground ambulance. Yris Urena RN at [facility] contacted; report relayed at [id number]. [facility] [place] contacted; next transport available at 0700.
[2023-11-09] MEDS: enoxaparin 60 mg/0.6 mL Syringe SUBCUT (05:54)
[2023-11-09] MEDS: oxyCODONE 5 mg IR Tab/Cap PO (05:58)
[2023-11-09] MEDS: morphine 4 mg/mL SDV 1 mL 2 MG IVP (07:49)
[2023-11-09] MEDS: dilTIAZem ER (12HR) 60 mg Capsule PO (08:07)
--- NOTE | 2023-11-09 08:25 | PC.NURSE ---
Transfer Note Patient transferred to [facility] from [facility] ICU via [facility] at 0825. Handoff report given to [facility]. Upon transfer patient is alert/oriented x4, on 2LNC. Thoravent in place & functioning well, remains hooked to water seal upon transfer. All patient belongings including shoes, socks, pants, shirt and Mnt. Dew sent with patient & EMS staff upon transfer. Patient oriented to environment and equipment. Covering service notified. Orders reviewed and will continue to monitor. This nurse called patient Yris to provide update.
--- NOTE | 2023-11-09 11:55 | USCV_ITS ---
Johnathan Santiago Age: 53 Gender: M : 1970 Exam Date: 11/09/2023 06:29 Ordering Phys: Guillaume Esquivel MD Technologist: Exam Location: [facility] [place] Indication: cad BP: 117 / 79 HR: 0 Rhythm: Sinus Technical Quality: Adequate MEASUREMENTS (Male / Female) Normal Values 2D ECHO LV Diastolic Diameter PLAX 4.6 cm 4.2 - 5.9 / 3.9 - 5.3 cm IVS Diastolic Thickness 0.7 cm 0.6 - 1.0 / 0.6 - 0.9 cm IVS Systolic Thickness 1.1 cm LVPW Diastolic Thickness 0.8 cm 0.6 - 1.0 / 0.6 - 0.9 cm LVPW Systolic Thickness 1.3 cm LVOT Diameter 2.0 cm LV Ejection Fraction 2D Teich 43.9 % LV Ejection Fraction MOD 2C 43.2 % LV Ejection Fraction 2C AL 0.0 % LA Diameter 2.2 cm IVC Diameter 2.0 cm M-MODE LA Ao Ratio MM 1.2 AV Cusp Separation MM 2.5 cm DOPPLER AV Peak Velocity 85.3 cm/s LVOT Peak Velocity 99.0 cm/s AV Area Cont Eq vti 2.4 cm squared AV Area Cont Eq pk 3.7 cm squared MV Area PHT 10.3 cm squared Mitral E to A Ratio 0.7 TV Peak Velocity 281.0 cm/s TR Peak Velocity 286.0 cm/s TR Peak Gradient 32.7 mmHg TV Peak E Velocity 82.0 cm/s Right Atrial Pressure 3.0 mmHg Pulmonary Artery Systolic Pressu 35.7 mmHg PV Peak Velocity 88.0 cm/s FINDINGS Left Ventricle Left ventricle is normal in size. LV systolic function is mildly reduced with EF of 45-50%. Mild global hypokinesis Right Ventricle Normal in size and function Right Atrium Normal in size Left Atrium Normal in size Mitral Valve Structurally normal mitral valve. Mild mitral regurgitation. Aortic Valve Structurally normal aortic valve. No significant stenosis or regurgitation. Tricuspid Valve Mild tricuspid regurgitation. RVSP is 35 to 40 mmHg. This is consistent with mild pulmonary hypertension. Pulmonic Valve Not well visualized Pericardium Normal Aorta Normal in size IVC Not well visualized CONCLUSIONS LV systolic function is mildly reduced with EF of 45 to 50%. Mild mitral regurgitation Mild tricuspid regurgitation Mild pulmonary hypertension No comparison studies are available. Gabe Arechiga MD (Electronically Signed) Final Date: 09 November 2023 11:14 S
--- NOTE | 2023-11-09 12:39 | PM.TDS ---
Transfer Summary Providers Date of Admission: 11/06/23 20:36 Date of Discharge/Transfer: 11/09/23 Attending Provider at Admission: Bob Tidwell DO Attending Provider at Transfer: Guillaume Esquivel MD Transfer Plans: Anticipated date of transfer: 11/09/23. Diagnoses at Discharge Discharge Diagnosis (1) Sepsis with acute respiratory failure and septic shock: Status: Acute Qualifiers: Acute respiratory failure type: with hypoxia (2) Pneumonia: Status: Acute Qualifiers: Laterality: left Lung location: lower lobe of lung Pneumonia type: due to unspecified organism Qualified Code(s): J18.9 - Pneumonia, unspecified organism (3) Hyponatremia: Status: Acute (4) Sinus tachycardia: Status: Acute Reason for Visit Reason for Visit CHEST PAIN Hospital Course Hospital Course 53-year male who was admitted for management evaluation of respiratory failure with hypoxia, patient all of a sudden started vomiting after eating [employer], patient was diagnosed with septic shock, he was given septic bolus, he required Levophed for about 24 hours he was admitted to the ICU, we were able to wean off Levophed and transition him from BiPAP to nasal cannula, right IJ was placed by the ER physician, patient was tachycardic on Wednesday we requested CTA chest which showed moderate left-sided pneumothorax, it seems to occurred spontaneously he does have significant emphysematous changes on lung scan, Thora vent was placed by the ER physician Dr. Kumar which resolved pneumothorax patient start experiencing left-sided pain after full expansion of lung EKG troponin unremarkable, echo was requested which showed EF 45 to 50% without any signs of thrombus no signs of PE. We do not have protective signal repairer for continuous monitoring of chest tube he was transferred to [facility] for pneumothorax and chest tube management, hospital service will be the admitting service Dr. Wilkerson is accepting physician, protective signal repairer will be consulted. I have spoken with both. Transfer of care coordinated, patient and family agreeable. Please note with chest tube placement we noted purulent drainage which seems to be exudative patient has blood culture positive for strep pneumo he is an active smoker. Repeat cultures negative to date Patient developed sinus tachycardia heart rate was ranging around 1 30-1 40 which improved with use of Cardizem keeping oxygen saturation above 92% on 3 L, keeping pain well-managed Physical Exam Narrative: Chest tube in place Chest pain-resolved Awake and alert hemodynamically stable heart rate 100 to sinus TS Data Studies Completed and Pending Pending at discharge Category Date Time Status XR chest 1V portable [id number] Routine Exams 11/08/23 15:00 Taken Blood Culture Routine Lab 11/08/23 03:30 Results Body Fluid Culture & GS Routine Lab 11/08/23 14:00 Results Completed Studies During Hospitalization Category Date Time Status CTA PE [CT angio chest PE protcl [id number]] Stat Cat Scan 11/08/23 09:13 Completed XR chest 1V portable [id number] Routine Exams 11/08/23 13:45 Completed XR chest 1V portable [id number] Stat Exams 11/06/23 18:33 Completed XR chest 1V portable [id number] Stat Exams 11/06/23 21:18 Completed CV. echo complete* [id number] Routine Ultrasound 11/09/23 11:55 Completed Laboratory Last Values WBC 21.94 10^3/uL (3.29-11.43) H 11/09/23 03:21 RBC 3.51 10^6/uL (3.85-5.65) L 11/09/23 03:21 Hgb 10.50 g/dL (11.27-16.99) L 11/09/23 03:21 Hct 31.3 % (37-53) L 11/09/23 03:21 MCV 89.2 fl (82-101) 11/09/23 03:21 MCH 29.9 pg (27-33) 11/09/23 03:21 MCHC 33.5 g/dL (30-55) 11/09/23 03:21 RDW 12.1 % (12.1-15.1) 11/09/23 03:21 Plt Count 177 10^3/cmm (157-399) 11/09/23 03:21 MPV 10.0 fL (7.4-10.4) 11/09/23 03:21 Neut % (Auto) 94.7 % 11/09/23 03:21 Lymph % (Auto) 1.4 % 11/09/23 03:21 Mitchell % (Auto) 3.0 % 11/09/23 03:21 Eos % (Auto) 0.0 % 11/09/23 03:21 Baso % (Auto) 0.2 % 11/09/23 03:21 Neut # (Auto) 20.77 10^3/uL (1.8-7.7) H 11/09/23 03:21 Lymph # (Auto) 0.3 10^3/uL (0.8-4.8) L 11/09/23 03:21 Mitchell # (Auto) 0.7 10^3/uL (0.2-0.9) 11/09/23 03:21 Eos # (Auto) 0.0 10^3/uL (0.0-0.8) 11/09/23 03:21 Baso # (Auto) 0.1 10^3/uL (0.0-0.1) 11/09/23 03:21 Nucleated RBC % (auto) 0 % 11/09/23 03:21 Total Counted 100 (0-100) 11/08/23 09:16 Atypical Lymphs % 0.0 % (0-5) 11/08/23 09:16 Absolute Neutrophils 22.2 10^3/cmm (1.4-6.5) H 11/08/23 09:16 Segmented Neutrophils 83 % 11/08/23 09:16 Abs Segm Neuts (Man) 19.4 10/cmm (1.6-7.1) H 11/08/23 09:16 Band Neutrophils 12.0 % 11/08/23 09:16 Abs Band Neuts (Man) 2.8 10^3/cmm (0.0-1.2) H 11/08/23 09:16 Absolute Lymphocytes 0.2 10^3/cmm (1.2-3.4) L 11/08/23 09:16 Lymphocytes (Manual) 1 % 11/08/23 09:16 Monocytes (Manual) 4.0 % 11/08/23 09:16 Absolute Monocytes 0.9 10^3/cmm (0.1-0.6) H 11/08/23 09:16 Eosinophils (Manual) 0 % 11/08/23 09:16 Absolute Eosinophils 0.0 10^3/cmm (0.0-0.7) 11/08/23 09:16 Basophils (Manual) 0.0 % 11/08/23 09:16 Absolute Basophils 0.0 10^3/cmm (0.0-0.2) 11/08/23 09:16 Nucleated RBCs # 0.0 /100WBC 11/09/23 03:21 Platelet Estimate Normal (Normal) 11/08/23 09:16 D-Dimer 0.54 ug/mLFEU (0-0.59) 11/06/23 18:39 Specimen Type Arterial 11/07/23 08:07 Sample Site Brachial, right 11/07/23 08:07 ABG pH 7.36 (7.35-7.45) 11/07/23 08:07 ABG pCO2 36.4 mmHg (35-45) 11/07/23 08:07 ABG pO2 80.6 mmHg (80.0-100.0) 11/07/23 08:07 ABG PO2/FiO2 Ratio 0 11/07/23 08:07 ABG HCO3 20.4 mmol/L (22-26) L 11/07/23 08:07 ABG Base Excess -4.5 mmol/L (-2.0-2.0) L 11/07/23 08:07 Shakir Test N/a 11/07/23 08:07 Hematocrit 37.5 % (42-52) L 11/07/23 08:07 O2 Delivery Device Bipap 11/07/23 08:07 FiO2 70.0 % 11/07/23 08:07 Housecalls Nurse ID Gd 11/07/23 08:07 Sodium 138 mmol/L (136-145) 11/09/23 03:21 Potassium 3.6 mmol/L (3.5-5.1) 11/09/23 03:21 Chloride 103 mmol/L (98-107) 11/09/23 03:21 Carbon Dioxide 26 mmol/L (22-29) 11/09/23 03:21 Anion Gap 12.6 (5-19) 11/09/23 03:21 BUN 17 mg/dL (6-20) 11/09/23 03:21 Creatinine 0.7 mg/dL (0.7-1.2) 11/09/23 03:21 GFR Calculation 117.1 mL/min (90-130) 11/09/23 03:21 Glucose 178 mg/dL (65-115) H 11/09/23 03:21 POC Glucose 134 mg/dL (70-110) H 11/08/23 22:05 Calculated Osmolality 292 mOsm/kg (285-295) 11/09/23 03:21 Lactic Acid 6.2 mmol/L (0.5-2.2) H* 11/06/23 18:39 Lactic Acid (Sepsis) 3.9 mmol/L (0.5-2.2) H 11/06/23 21:48 Lactate 1.8 mmol/L (0.5-2.2) 11/09/23 03:21 Calcium 8.5 mg/dL (8.5-10.5) 11/09/23 03:21 Magnesium 1.9 mg/dL (1.7-2.3) 11/08/23 03:30 Total Bilirubin 0.2 mg/dL (0.15-1.2) 11/08/23 03:30 AST 33 U/L (0-40) 11/08/23 03:30 ALT 17 U/L (0-41) 11/08/23 03:30 Alkaline Phosphatase 58 U/L (40-130) 11/08/23 03:30 Creatine Kinase 246 U/L (39-308) 11/06/23 18:39 Troponin T Baseline 13 ng/L (0-15) 11/06/23 18:39 Troponin T 120 Minute 10.36 ng/L (0-15) 11/06/23 19:49 Delta Troponin T -2.64 ABS# (0-10) L 11/06/23 19:49 Troponin T Hi Sens 6Hr 18.04 ng/L (0-15) H 11/07/23 01:15 Troponin T Hi Sens 6Hr Delta 5.04 ng/L (0-12) 11/07/23 01:15 C-Reactive Protein 303.7 mg/L (0.0-4.9) H 11/08/23 03:30 Total Protein 5.1 g/dL (6.6-8.7) L 11/08/23 03:30 Albumin 2.6 g/dL (3.5-5.2) L 11/08/23 03:30 Globulin 2.5 g/dL (1.3-4.6) 11/08/23 03:30 Lipase 6 U/L (13-60) L 11/06/23 18:39 Procalcitonin 42.39 ng/mL (0-0.5) H 11/08/23 03:30 Urine Color Yellow (Yellow) 11/06/23 20:10 Urine Appearance Sl hazy (CLEAR) A 11/06/23 20:10 Urine pH 5 (5-7) 11/06/23 20:10 Ur Specific [place] 1.010 (1.005-1.030) 11/06/23 20:10 Urine Protein 1+ (Negative) H 11/06/23 20:10 Urine Glucose (UA) Norm (Normal) 11/06/23 20:10 Urine Ketones 1+ (Negative) H 11/06/23 20:10 Urine Blood 3+ (Negative) H 11/06/23 20:10 Urine Nitrate Negative (Negative) 11/06/23 20:10 Urine Bilirubin Neg (Negative) 11/06/23 20:10 Urine Urobilinogen Norm mg/dL (Negative) 11/06/23 20:10 Ur Leukocyte Esterase Negative (Negative) 11/06/23 20:10 Urine RBC 0-4 /hpf (0-2) H 11/06/23 20:10 Urine WBC 0-4 /hpf (0-5) H 11/06/23 20:10 Ur Squamous Epith Cells 0-4 /hpf (0-5) H 11/06/23 20:10 Amorphous Sediment Trace /hpf 11/06/23 20:10 Urine Bacteria 2+ /hpf (NONE) H 11/06/23 20:10 Hyaline Casts 0-4 /lpf H 11/06/23 20:10 Coarse Granular Casts 0-4 /lpf H 11/06/23 20:10 Fld Crystal Laterality Left pleural fluid 11/08/23 14:00 Pleural Color Slight pink (Pale Yellow) H 11/08/23 14:00 Pleural Appearance Cloudy (CLEAR) 11/08/23 14:00 Pleural pH 8.00 (6.5-7.5) H 11/08/23 14:00 Pleural WBC 06959.000 /uL (0-1000) H 11/08/23 14:00 Pleural RBC 18.000 10^3/uL 11/08/23 14:00 Pleural Mononuc # Auto 4.699 10^3/uL 11/08/23 14:00 Pleural Polynuclear % 94 % 11/08/23 14:00 Pleural Polynuclear # 72.008 10^3/uL 11/08/23 14:00 Pleural Mononuclear % 6 % 11/08/23 14:00 Pleural Other Cells Lt Left consolidation 11/08/23 14:00 Pleural LDH 1359 U/L 11/08/23 14:00 Pleural Glucose 61.0 mg/dL 11/08/23 14:00 Vancomycin Trough 8.1 ug/mL (10-15) L 11/08/23 09:16 Urine Opiates Screen Negative ng/mL (Negative) 11/06/23 20:10 Ur Barbiturates Screen Negative ng/mL (Negative) 11/06/23 20:10 Ur Phencyclidine Scrn Negative ng/mL (Negative) 11/06/23 20:10 Ur Amphetamines Screen Negative ng/mL (Negative) 11/06/23 20:10 U Benzodiazepines Scrn Negative ng/mL (Negative) 11/06/23 20:10 Urine Cocaine Screen Negative ng/mL (Negative) 11/06/23 20:10 U Marijuana (THC) Screen Negative ng/mL (Negative) 11/06/23 20:10 Adenovirus (PCR) Not detected (NOT DETECT) 11/06/23 18:40 C. pneumoniae DNA (PCR) Not detected (NOT DETECT) 11/06/23 18:40 Coronavirus 229E (PCR) Not detected (NOT DETECT) 11/06/23 18:40 Human Metapneumovir PCR Not detected (NOT DETECT) 11/06/23 18:40 Influenza A (H1) PCR Not detected (NOT DETECT) 11/06/23 18:40 Influ A (H1/09) PCR Not detected (NOT DETECT) 11/06/23 18:40 Influenza A (H3) PCR Not detected (NOT DETECT) 11/06/23 18:40 Influenza Type A (PCR) Not detected (NOT DETECT) 11/06/23 18:40 Influenza Type B (PCR) Not detected (NOT DETECT) 11/06/23 18:40 M. pneumoniae (PCR) Not detected (NOT DETECT) 11/06/23 18:40 Parainfluenza 1 (PCR) Not detected (NOT DETECT) 11/06/23 18:40 Parainfluenza 2 (PCR) Not detected (NOT DETECT) 11/06/23 18:40 Parainfluenza 3 (PCR) Not detected (NOT DETECT) 11/06/23 18:40 Parainfluenza 4 (PCR) Not detected (NOT DETECT) 11/06/23 18:40 RSV Type A (PCR) Not detected (NOT DETECT) 11/06/23 18:40 RSV Type B (PCR) Not detected (NOT DETECT) 11/06/23 18:40 Entero/Rhino (PCR) Not detected (NOT DETECT) 11/06/23 18:40 SARS-CoV-2 (PCR) Not detected (NOT DETECT) 11/06/23 18:40 Pathology Message Yes 11/08/23 14:00 Recent Clincial Data Last Vital Signs Temp 98.2 F 11/09/23 03:00 Pulse 88 11/09/23 08:08 Resp 18 11/09/23 08:00 BP 119/77 11/09/23 08:00 Pulse Ox 92 11/09/23 08:00 O2 Del Method Nasal Cannula 11/09/23 08:00 O2 Flow Rate 3 11/09/23 08:00 FiO2 30 11/08/23 02:27 Vital Signs Temp Pulse Resp BP Pulse Ox O2 Del Method O2 Flow Rate 11/09/23 08:08 88 11/09/23 08:00 119/77 11/09/23 08:00 96 18 92 Nasal Cannula 3 11/09/23 07:49 27 H 11/09/23 07:45 101 H 23 H 119/77 95 11/09/23 07:30 102 H 28 H 119/80 95 11/09/23 07:15 118 H 25 H 119/80 95 11/09/23 07:00 106 H 29 H 120/77 94 11/09/23 06:45 116 H 26 H 120/77 94 11/09/23 06:30 96 23 H 117/79 96 11/09/23 06:15 88 24 H 117/79 99 11/09/23 06:00 113 H 31 H 118/76 97 11/09/23 06:00 99 25 H 117/79 97 Nasal Cannula 2 11/09/23 05:58 27 H 97 11/09/23 05:49 106 H 11/09/23 05:45 103 H 23 H 118/76 96 11/09/23 05:30 83 27 H 114/77 97 11/09/23 05:15 104 H 28 H 114/77 96 11/09/23 05:00 106 H 26 H 118/81 96 11/09/23 04:45 97 22 H 118/81 98 11/09/23 04:30 101 H 28 H 117/78 96 11/09/23 04:15 100 26 H 117/78 96 11/09/23 04:00 106 H 33 H 116/80 95 11/09/23 03:45 114 H 27 H 116/80 89 L 11/09/23 03:30 103 H 26 H 110/79 95 11/09/23 03:15 103 H 24 H 110/79 94 11/09/23 03:00 98.2 F 115 H 26 H 108/75 94 Nasal Cannula 2 11/09/23 02:45 107 H 25 H 108/75 95 Nasal Cannula 2 11/09/23 02:30 114 H 24 H 124/83 95 Nasal Cannula 2 11/09/23 02:15 109 H 28 H 124/83 95 11/09/23 02:00 125 H 20 H 124/82 93 11/09/23 01:45 120 H 30 H 124/82 88 L 11/09/23 01:33 108 H 17 94 Nasal Cannula 3 11/09/23 01:30 116 H 21 H 120/85 60 L 11/09/23 01:15 110 H 25 H 120/85 99 11/09/23 01:00 113 H 30 H 123/80 98 11/09/23 00:45 109 H 27 H 123/80 96 Intake & Output/Weight 11/07/23 11/08/23 11/09/23 11/10/23 06:59 06:59 06:59 06:59 Intake Total 3577.375 / 3577.375 6173.245 / 6173.245 3130 / 3130 Output Total 1325 / 1325 1850 / 1850 2737 / 2737 Balance 2252.375 / 2252.375 4323.245 / 4323.245 393 / 393 Weight 61.689 kg 63.985 kg 61.859 kg Vitals Last Vital Signs Temp 98.2 F 11/09/23 03:00 Pulse 88 11/09/23 08:08 Resp 18 11/09/23 08:00 BP 119/77 11/09/23 08:00 Pulse Ox 92 11/09/23 08:00 O2 Del Method Nasal Cannula 11/09/23 08:00 O2 Flow Rate 3 11/09/23 08:00 FiO2 30 11/08/23 02:27 TS Medications Medications Discontinued Medications Acetaminophen (Acetaminophen 325 Mg Tablet) 650 mg PO Q6H PRN PRN Reason: MILD PAIN Diltiazem HCl (Diltiazem Er (12hr) 60 Mg Capsule) 60 mg PO BID [facility] Last Admin: 11/09/23 08:07 Dose: 60 mg Docusate Sodium (Docusate Sodium 100 Mg Capsule) 100 mg PO BID [facility] Last Admin: 11/09/23 08:08 Dose: Not Given Enoxaparin Sodium (Enoxaparin 40 Mg/0.4 Ml Syringe) 40 mg SUBCUT Q24H [facility] Stop: 11/08/23 18:38 Last Admin: 11/07/23 21:37 Dose: 40 mg Enoxaparin Sodium (Enoxaparin 60 Mg/0.6 Ml Syringe) 60 mg SUBCUT Q12H [facility] Last Admin: 11/09/23 05:54 Dose: 60 mg Famotidine (Famotidine 20 Mg/2 Ml Inj) 20 mg IVP Q12H [facility] Last Admin: 11/08/23 21:32 Dose: 20 mg Fentanyl (Fentanyl 50 Mcg/Ml Inj 2ml) 25 mcg IVP ONCE PRN PRN Reason: ANESTHESIA Last Admin: 11/08/23 12:16 Dose: 25 mcg Heparin Sodium (Porcine) (Heparin Lock Flush 500 Unit/5 Ml Syringe) 200 - 500 unit IV PRN PRN PRN Reason: Central line flush Heparin Sodium (Porcine) (Heparin Lock Flush 500 Unit/5 Ml Syringe) 200 - 500 unit IV Q12H [facility] Last Admin: 11/08/23 21:31 Dose: 500 unit Sodium Chloride (Sodium Chloride 0.9%) 1,000 mls @ 999 mls/hr IV .Q1H1M [facility] Stop: 11/06/23 20:45 Last Infusion: 11/06/23 21:00 Dose: Infused Sodium Chloride (Sodium Chloride 0.9% (100 Ml)) Confirm Administered Dose 400 mls @ as directed .ROUTE .STK-MED ONE Stop: 11/06/23 18:40 Last Admin: 11/06/23 18:45 Dose: Not Given norepinephrine (Levophed) 4 mg in 250 mls @ 0 mls/hr IV .Q0M [facility]; Protocol Last Titration: 11/08/23 08:53 Dose: Infused Piperacillin Sod/Tazobactam (Sod 4.5 gm/ Sodium Chloride) 50 mls @ 100 mls/hr IV ONCE ONE; Protocol Stop: 11/06/23 19:51 Last Infusion: 11/06/23 19:56 Dose: Infused Vancomycin HCl 1,000 mg/ (Sodium Chloride) 250 mls @ 250 mls/hr IV ONCE ONE; Protocol Stop: 11/06/23 20:53 Last Admin: 11/06/23 21:15 Dose: Not Given Vancomycin HCl 1,000 mg/ (Sodium Chloride) 250 mls @ 250 mls/hr IV ONCE ONE; Protocol Stop: 11/06/23 22:00 Last Infusion: 11/07/23 07:13 Dose: Infused Sodium Chloride (Sodium Chloride 0.9%) 1,000 mls @ 250 mls/hr IV .Q4H JOHN Last Admin: 11/07/23 07:23 Dose: Not Given Azithromycin 500 mg/ Sodium (Chloride) 250 mls @ 250 mls/hr IV Q24H JOHN; Protocol Last Infusion: 11/07/23 01:16 Dose: Infused Ceftriaxone Sodium 1,000 mg/ (Sodium Chloride) 50 mls @ 100 mls/hr IV Q24H JOHN; Protocol Last Infusion: 11/07/23 01:16 Dose: Infused Dextrose (D10w) 125 mls @ 750 mls/hr IV PRN PRN; Protocol PRN Reason: Adult DKA Hypoglycemia Nursing Protocol Last Infusion: 11/07/23 06:46 Dose: Infused Dextrose (D10w) 250 mls @ 1,000 mls/hr IV PRN PRN; Protocol PRN Reason: Adult DKA Hypoglycemia Nursing Protocol Dextrose/Sodium Chloride (Dextrose 5%-Sod Chloride 0.9%) 1,000 mls @ 100 mls/hr IV .Q10H JOHN Last Admin: 11/08/23 08:53 Dose: Not Given Dexmedetomidine/Sodium Chloride (Precedex) 400 mcg in 100 mls @ 0 mls/hr IV .Q0M JOHN; Protocol Last Titration: 11/08/23 12:08 Dose: Infused Levofloxacin/Dextrose (Levaquin-D5w) 750 mg in 150 mls @ 100 mls/hr IV ONCE ONE; Protocol Stop: 11/07/23 09:38 Last Infusion: 11/07/23 09:53 Dose: Infused Vancomycin HCl 1,000 mg/ (Sodium Chloride) 250 mls @ 250 mls/hr IV Q12H [facility] Last Infusion: 11/08/23 10:16 Dose: Infused Sodium Chloride (Sodium Chloride 0.9%) 500 mls @ 999 mls/hr IV .Q31M ONE Stop: 11/07/23 12:58 Last Infusion: 11/07/23 13:12 Dose: Infused Vancomycin/PEG/NADA/Lysine/Water (Vancocin) 1,250 mg in 250 mls @ 250 mls/hr IV Q12H [facility] Last Infusion: 11/08/23 22:47 Dose: Infused Iohexol (Iohexol 350 Mg/Ml 500 Ml Btl (Per Ml)) 0 ml IV ONCE ONE Stop: 11/08/23 10:57 Last Admin: 11/08/23 10:57 Dose: 45 ml Ipratropium [place] (Ipratropium 0.5 Mg/2.5 Ml Neb) 0.5 mg INHALATION Q6H.RESP [facility] Last Admin: 11/09/23 08:00 Dose: 0.5 mg Levalbuterol HCl (Levalbuterol 1.25 Mg/3 Ml Neb) 1.25 mg INHALATION Q6H.RESP [facility] Last Admin: 11/09/23 08:00 Dose: 1.25 mg Lidocaine HCl (Lidocaine 1% Inj 10 Ml (Per Ml)) 0.1 ml INTRADERMA PRN PRN PRN Reason: Anesthetic Catheter Placement Lorazepam (Lorazepam 2 Mg/Ml Inj 10 Ml Mdv) 0.5 mg IVP Q8H PRN PRN Reason: ANXIETY Last Admin: 11/07/23 02:27 Dose: 0.5 mg Methylprednisolone Sodium Succinate (Methylprednisolone Sod Succ 40 Mg/Ml Inj) 40 mg IVP Q24H [facility] Last Admin: 11/07/23 05:39 Dose: 40 mg Methylprednisolone Sodium Succinate (Methylprednisolone Sod Succ 125 Mg/2 Ml Inj) 60 mg IVP Q12H [facility] Last Admin: 11/08/23 21:32 Dose: 60 mg Midazolam HCl (Midazolam 1 Mg/Ml Inj 2 Ml) 2 mg IVP ONCE ONE Stop: 11/08/23 11:42 Last Admin: 11/08/23 11:50 Dose: Not Given Midazolam HCl (Midazolam 1 Mg/Ml Inj 2 Ml) 3 mg IVP ONCE ONE Stop: 11/08/23 11:50 Last Admin: 11/08/23 12:17 Dose: 3 mg Morphine Sulfate (Morphine 4 Mg/Ml Sdv 1 Ml) 2 mg IVP Q4H 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 Last Admin: 11/09/23 07:49 Dose: 2 mg Ondansetron HCl (Ondansetron 2 Mg/Ml Sdv 2 Ml) 4 mg IVP Q6H PRN PRN Reason: NAUSEA AND VOMITING Oxycodone HCl (Oxycodone 5 Mg Ir Tab/Cap) 5 mg PO Q6H PRN PRN Reason: MODERATE PAIN Last Admin: 11/09/23 05:58 Dose: 5 mg Sodium Chloride (Sodium Chloride 0.9 % (Flush) Syringe 10 Ml) 5 - 10 ml IV PRN PRN PRN Reason: Central line flush Sodium Chloride (Sodium Chloride 0.9 % (Flush) Syringe 10 Ml) 5 - 10 ml IV Q12H JOHN Last Admin: 11/08/23 22:06 Dose: 10 ml Vancomycin HCl (Vancomycin 1,000 Mg Sdv) Confirm Administered Dose 1,000 mg .ROUTE .STWhat the Trend-MED ONE Stop: 11/07/23 10:02 Last Admin: 11/07/23 10:13 Dose: Not Given Allergies No Known Allergies Allergy (Verified 11/06/23 18:36) Home Medications amitriptyline 25 mg tablet 25 mg PO DAILY 11/07/23 [History Confirmed 11/07/23] gabapentin 300 mg capsule 300 mg PO TID 11/07/23 [History Confirmed 11/07/23] meloxicam 15 mg tablet 15 mg PO DAILY 11/07/23 [History Confirmed 11/07/23] methocarbamol 750 mg tablet 750 mg PO TID PRN Pain 11/07/23 [History Confirmed 11/07/23] Discharge Plan Discharge Patient Disposition: Xfer Short-Term Hosp Condition: Critical Prescriptions: No Action gabapentin 300 mg capsule 300 mg PO TID amitriptyline 25 mg tablet 25 mg PO DAILY meloxicam 15 mg tablet 15 mg PO DAILY methocarbamol 750 mg tablet 750 mg PO TID PRN (Reason: Pain) Discharge Orders: Discharge Order (Routine); Ordered 11/09/23 Ordered By: Guillaume Esquivel Patient Instructions: Opioid Safety, Pain Management Transfer Attestations Time Spent in Transfer Care: greater than 30 min Quality Metrics Clinical Quality Measures [ No reported AMI, CVA or VTE this stay] Coding Level of Care Code Acute Code for Chg Fwd Diagnoses Sepsis with acute respiratory failure and septic shock A41.9; R65.21; J96.00 Acute respiratory failure type: with hypoxia Pneumonia of left lower lobe due to infectious organism J18.9 Laterality: left Lung location: lower lobe of lung Pneumonia type: due to unspecified organism Hyponatremia E87.1 Sinus tachycardia R00.0
== END 2023-11-09 09:39 | disposition short-term general hospital (02) | DRG 871 ==
LOC: ER 20:23 → ICU 20:36
PROVIDERS: Family Medicine; Admitting Provider Internal Medicine; Emergency Provider Emergency Medicine; Visit Provider Internal Medicine
DX: A40.3 Sepsis due to Streptococcus pneumoniae (principal); J18.9 Pneumonia, unspecified organism; R65.21 Severe sepsis with septic shock; J96.01 Acute respiratory failure with hypoxia; E87.1 Hypo-osmolality and hyponatremia; Z68.1 Body mass index [BMI] 19.9 or less, adult; J93.83 Other pneumothorax; F17.210 Nicotine dependence, cigarettes, uncomplicated; R00.0 Tachycardia, unspecified; M54.50 Low back pain, unspecified; G89.29 Other chronic pain; R63.4 Abnormal weight loss; F40.240 Claustrophobia
CPT/HCPCS: 36415; 36416; 36556; 36592; 36600; 71045; 71275; 80048; 80053; 80202; 80306; 80503; 81001; 82550; 82803; 82945; 82962; 83605; 83615; 83690; 83735; 83986; 84145; 84484; 85007; 85025; 85378; 86140; 87040; 87070; 87075; 87086; 87150; 87186; 87205; 87449; 87486; 87581; 87633; 89050; 93005; 93306; 94640; 94660; 94664; 96365; 96366; 96367; 96372; 96376; 99291; C1751; J0456; J0696; J1642; J1650; J1956; J2060; J2250; J2270; J2543; J2920; J2930; J3010; J3370; J3490; J7030; J7040; J7042; J7050; J7614; J7644; J7799; Q9967

== ENCOUNTER 2023-12-25 16:40 | Observation (INO) | payer MEDICAID, SELFPAY ==
[2023-12-25] VITALS (10 sets, daily range): BP systolic 99–119; BP diastolic 64–76; PULSE 98–132; RESP 18–29; TEMP 36.8–37.5; O2SAT 87–98
--- NOTE | 2023-12-25 16:48 | XRR_ITS ---
PROCEDURE INFORMATION: Exam: XR Chest Exam date and time: 12/25/2023 5:01 PM Age: 53 years old Clinical indication: Patient HX: SOB; Cough; Chest pressure; HX recent lt pneumo with chest tube & pneumonia TECHNIQUE: Imaging protocol: Radiologic exam of the chest. Views: 1 view. COMPARISON: CR XR chest 1V portable [id number] 11/08/2023 1:58 PM FINDINGS: Lungs: Stable right apical scarring and nodularity. Mild residual left basilar scarring. Interval resolution of left basilar consolidation and effusion. No consolidation. 2.4 cm left perihilar nodule. Pleural spaces: Minimal blunting of right costophrenic angle likely related to chronic pleural scarring. Possible trace residual left pleural effusion. No pneumothorax. Heart/Mediastinum: Unremarkable. No cardiomegaly. Bones/joints: No acute osseous abnormalities are seen. XR/XR chest 1V [id number] IMPRESSION: 1. 2.4 cm left perihilar nodule. Possibly enlarged left hilar lymph node or nodule obscured by consolidation on prior CT. Recommend further evaluation with nonemergent CT chest. 2. No evidence of acute cardiopulmonary disease.
--- NOTE | 2023-12-25 16:54 | ECG_ITS ---
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 Measurements Intervals [place] Rate: 117 P: 86 TX: 138 QRS: 90 QRSD: 94 T: 89 QT: 308 QTc: 431 Interpretive Statements SINUS TACHYCARDIA ABNORMAL RHYTHM ECG INTERPRETATION BASED ON A DEFAULT AGE OF 40 YEARS Compared to ECG 11/08/2023 13:25:31 T-wave abnormality no longer present Electronically Signed On 12-26-2023 20:47:39 CDT by Sharmin Barboza M.D. [id number]
[2023-12-25] MEDS: sodium chloride 0.9% 1,000 ML 999 ML IV (16:57)
[2023-12-25] MEDS: ondansetron 2 mg/ML SDV 2 mL 4 MG IVP (16:58)
[2023-12-25] MEDS: metoclopramide 5 mg/mL SDV 2 mL 10 MG IVP (16:59)
--- NOTE | 2023-12-25 17:00 | W.ED.HA ---
HPI - Headache General: Chief Complaint: Headache Stated Complaint: MIGRAINE Time Seen by Provider: 12/25/23 16:42 History of Present Illness: 53-year-old man with a history of tobacco dependence and migraine headaches who presents to the emergency room with a headache that started last night. He said nausea and vomiting. He also complains of some congestion and a cough. He says the nausea and vomiting is secondary to the headache and this is fairly typical for his headaches minus the respiratory symptoms. He is tachycardic on presentation. Also his O2 sats are in the upper 80s. He says he does not know if he has COPD but he seems it is likely since he has been smoking for over 40 years. No altered mental status. No focal motor deficits. No chest pain. No abdominal pain. He does have phonophobia and photophobia. He describes the headache as generalized. Review of Systems Narrative: Constitutional symptoms: Negative except as documented in HPI. Skin symptoms: Negative except as documented in HPI. Eye symptoms: Negative except as documented in HPI. ENMT symptoms: Negative except as documented in HPI. Respiratory symptoms: Negative except as documented in HPI. Cardiovascular symptoms: Negative except as documented in HPI. Gastrointestinal symptoms: Negative except as documented in HPI. Genitourinary symptoms: Negative except as documented in HPI. Musculoskeletal symptoms: Negative except as documented in HPI. Neurologic symptoms: Negative except as documented in HPI. Psychiatric symptoms: Negative except as documented in HPI. Endocrine symptoms: Negative except as documented in HPI. [facility] ED PFSH: Family History Mother No problems noted. Father No problems noted. Social History Smoking and tobacco/nicotine status: current every day tobacco/nicotine user cigarettes Packs smoked per day: 1.5 Years cigarettes smoked: 40 [ Other cigarette details: at times smoked more than 1.5/ppd] Second hand smoke exposure: Yes Alcohol intake: current Alcohol intake frequency: few times a month Alcohol type: hard liquor Substance/Drug Use: never Household members: spouse Current occupational status: unemployed Physical Exam Narrative: EXAM NARRATIVE: General: Alert, patient appears like he does not feel well. He has an aversion to light. Skin: Warm, dry. Head: Normocephalic, atraumatic. Neck: Supple, trachea midline. Eye: Extraocular movements are intact. Ears, nose, mouth and throat: mucosa moist. Cardiovascular: Regular, tachycardic, normal peripheral perfusion. Respiratory: Coarse, some scattered wheeze, no increased work of breathing. breath sounds are equal, Symmetrical chest wall expansion. Gastrointestinal: Soft, Nontender, Non distended, Normal bowel sounds. Musculoskeletal: Normal ROM, no deformity. Neurological: Alert and oriented, No focal neurological deficit observed. Psychiatric: Cooperative, appropriate mood & affect. Course Vital Signs: Vital signs: Vital Signs Temperature 99.5 F 12/25/23 16:40 Pulse Rate 110 H 12/25/23 18:39 Respiratory Rate 20 H 12/25/23 17:09 Blood Pressure 105/64 12/25/23 18:39 Pulse Oximetry 90 12/25/23 18:39 Oxygen Delivery Me thod Nasal Cannula 12/25/23 17:09 Oxygen Flow Rate 2 12/25/23 17:09 MDM - Headache Medical Decision Making Medical decision making: Differential diagnosis for this patient presenting with severe headache including but not limited to and based on the above HPI, review of systems and physical exam: Intracranial hemorrhage, stroke, migraine, cluster headache, infections such as influenza, covid. Also given his hypoxemia chest x-ray was ordered. Orders placed to evaluate differential diagnosis based on the above differential, HPI and physical exam Lab Review: Laboratory results were reviewed and interpreted by myself the emergency room physician. Mild leukocytosis with a white count of 11. Hemoglobin is 11.8. Platelets are 159. Sodium is 133. BUN and creatinine are 9 and 0.8. Lactic acid is 1. LFTs are not elevated. Flu and COVID are negative. AB.42/37.5/45.5. 84% on room air. Chest x-ray: Some flattening of the diaphragms/emphysematous changes. No acute process. No infiltrate. No pneumothorax. No cardiomegaly. This was reviewed and interpreted by myself the ER physician. EKG: Time 1654 rate 117 sinus tachycardia, No ST-T changes, no ectopy, normal NH & QRS intervals, This was reviewed and interpreted by myself the ER physician. Reexamination: Patient still has some mild wheeze. No increased work of breathing. He seems much improved on oxygen. He seems in less distress as far as his headache is concerned. No altered mental status. No focal motor deficits. Medical Records I reviewed the patient's medical records. Lab Data 12/25/23 17:08 12/25/23 17:08 Radiology Impressions Chest X-Ray 12/25/23 16:48 IMPRESSION: 1. 2.4 cm left perihilar nodule. Possibly enlarged left hilar lymph node or nodule obscured by consolidation on prior CT. Recommend further evaluation with nonemergent CT chest. 2. No evidence of acute cardiopulmonary disease. Chest CTA 12/25/23 18:10 IMPRESSION: 1. No evidence of pulmonary embolism. 2. No evidence of acute cardiopulmonary disease. 3. 2.5 cm smoothly marginated low-density nodule in the superior segment of the left lower lobe which is inseparable from the fissure and has apparent tubular communication with the pleura. This nodule has low likelihood for malignancy and three-month follow-up is recommended. See comments. 4. Nonaggressive appearing 2.1 cm mixed lytic and sclerotic lesion in the left humeral head. Follow-up with nonemergent on plain film radiography. Comments: For both low risk and high risk patients, consider CT Chest at 3 months, PET/CT, or biopsy. (Reference: Mely) References: Mely Benitez, et al. Guidelines for Management of Incidental Pulmonary Nodules Detected on CT Images: From the Fleischner Society 2017. Radiology. 2017;284(1):228-243. Laboratory Results WBC 11.07 10^3/uL (3.29-11.43) 12/25/23 17:08 RBC 4.07 10^6/uL (3.85-5.65) 12/25/23 17:08 Hgb 11.80 g/dL (11.27-16.99) 12/25/23 17:08 Hct 36.3 % (37-53) L 12/25/23 17:08 MCV 89.2 fl (82-101) 12/25/23 17:08 MCH 29.0 pg (27-33) 12/25/23 17:08 MCHC 32.5 g/dL (30-55) 12/25/23 17:08 RDW 13.3 % (12.1-15.1) 12/25/23 17:08 Plt Count 159 10^3/cmm (157-399) 12/25/23 17:08 MPV 9.2 fL (7.4-10.4) 12/25/23 17:08 Neut % (Auto) 88.5 % 12/25/23 17:08 Lymph % (Auto) 2.0 % 12/25/23 17:08 Clinton % (Auto) 8.4 % 12/25/23 17:08 Eos % (Auto) 0.2 % 12/25/23 17:08 Baso % (Auto) 0.5 % 12/25/23 17:08 Neut # (Auto) 9.81 10^3/uL (1.8-7.7) H 12/25/23 17:08 Lymph # (Auto) 0.2 10^3/uL (0.8-4.8) L 12/25/23 17:08 Clinton # (Auto) 0.9 10^3/uL (0.2-0.9) 12/25/23 17:08 Eos # (Auto) 0.0 10^3/uL (0.0-0.8) 12/25/23 17:08 Baso # (Auto) 0.1 10^3/uL (0.0-0.1) 12/25/23 17:08 Nucleated RBC % (auto) 0 % 12/25/23 17:08 Nucleated RBCs # 0.0 /100WBC 12/25/23 17:08 Specimen Type Arterial 12/25/23 17:31 Sample Site Brachial, right 12/25/23 17:31 ABG pH 7.42 (7.35-7.45) 12/25/23 17:31 ABG pCO2 37.5 mmHg (35-45) 12/25/23 17:31 ABG pO2 45.5 mmHg (80.0-100.0) L 12/25/23 17:31 ABG PO2/FiO2 Ratio 0 12/25/23 17:31 ABG HCO3 24.2 mmol/L (22-26) 12/25/23 17:31 ABG O2 Saturation 83.9 12/25/23 17:31 ABG Base Excess -0.2 mmol/L (-2.0-2.0) 12/25/23 17:31 Shakir Test Pos 12/25/23 17:31 A-a O2 Gradient 7.5 mmHg (5-10) 12/25/23 17:31 Hematocrit 37.4 % (42-52) L 12/25/23 17:31 Hgb O2 Saturation 80.5 % (95-100) L 12/25/23 17:31 Carboxyhemoglobin 2.9 %THgb (0.4-20.1) 12/25/23 17:31 Methemoglobin 1.1 % (0.4-1.5) 12/25/23 17:31 Total Hemoglobin 12.2 g/dL (14-18) L 12/25/23 17:31 Sodium 133.0 mmol/L (131-143) 12/25/23 17:31 Potassium 3.7 mmol/L (3.5-5.0) 12/25/23 17:31 Glucose 102.0 mg/dL (70-115) 12/25/23 17:31 Ionized Calcium 1.1 mmol/L (1.1-1.4) 12/25/23 17:31 O2 Delivery Device Room air 12/25/23 17:31 FiO2 21.0 % 12/25/23 17:31 City Letter Carrier ID Broma 12/25/23 17:31 Sodium 133 mmol/L (136-145) L 12/25/23 17:08 Potassium 3.9 mmol/L (3.5-5.1) 12/25/23 17:08 Chloride 100 mmol/L (98-107) 12/25/23 17:08 Carbon Dioxide 24 mmol/L (22-29) 12/25/23 17:08 Anion Gap 12.9 (5-19) 12/25/23 17:08 BUN 9 mg/dL (6-20) 12/25/23 17:08 Creatinine 0.8 mg/dL (0.7-1.2) 12/25/23 17:08 GFR Calculation 100.4 mL/min (90-130) 12/25/23 17:08 Glucose 112 mg/dL (65-115) 12/25/23 17:08 Calculated Osmolality 275 mOsm/kg (285-295) L 12/25/23 17:08 Lactic Acid 1.0 mmol/L (0.5-2.2) 12/25/23 17:08 Calcium 7.9 mg/dL (8.5-10.5) L 12/25/23 17:08 Total Bilirubin 0.4 mg/dL (0.15-1.2) 12/25/23 17:08 AST 16 U/L (0-40) 12/25/23 17:08 ALT 9 U/L (0-41) 12/25/23 17:08 Alkaline Phosphatase 75 U/L (40-130) 12/25/23 17:08 Total Protein 6.3 g/dL (6.6-8.7) L 12/25/23 17:08 Albumin 3.7 g/dL (3.5-5.2) 12/25/23 17:08 Globulin 2.6 g/dL (1.3-4.6) 12/25/23 17:08 Influenza Type A Ag negative (Negative) 12/25/23 17:29 Influenza Type B Ag negative (Negative) 12/25/23 17:29 SARS-CoV-2 Ag (Rapid) negative (Negative) 12/25/23 17:29 All radiology interpretation(s) finalized by discharge Other Data Assessment and plan: COPD with acute exacerbation Hypoxemic respiratory failure Migraine headache Dehydration -IV Decadron, updrafts, IV Levaquin. -Patient is stable on 2 L nasal cannula. He is not on oxygen at home. -Reglan, Benadryl, Norflex for patient's headache. -IV fluids. Patient was tachycardic and borderline hypotensive. I think he is a bit dehydrated -I discussed the patient with the hospitalist on-call who is admitting the patient. - Discussed findings and plan with patient. Answered any questions. - All laboratory values were reviewed and interpreted personally by myself, the ER physician - All imaging was reviewed and interpreted personally by myself, the ER physician. - Evaluation and treatment of this problem were appropriate in the emergency setting -I spent a total of >35 minutes of critical care time managing the patient, independent of any other practitioner. -The time involved in the performance of separately reportable procedures was not counted towards critical care time. Discharge Plan Discharge Patient Disposition: Placed in Observation Clinical Impression: COPD with acute exacerbation, Hypoxemia, Tobacco dependence Coding Level of Care Code ED Vendor Quality Supervisor for Rafiq Vee
[2023-12-25] MEDS: dexamethasone 10 mg/mL INJ IVP (17:01)
[2023-12-25] MEDS: orphenadrine 30 mg/mL Inj 2 mL 60 MG IVP (17:02)
[2023-12-25] MEDS: diphenhydrAMINE 50 mg/mL SDV 1mL IVP (17:04)
[2023-12-25] MEDS: albuterol 2.5 mg/3 mL Neb INHALATION (17:06)
[2023-12-25] MEDS: ipratropium-albuterol 3 mL Neb INHALATION (17:06)
[2023-12-25 17:27] LABS: Basophils # 0.1 10^3/uL (0.0-0.1); Basophils % 0.5 %; Eosinophils % 0.2 %; Hematocrit 36.3 % (37-53); Lymphocytes # 0.2 10^3/uL (0.8-4.8); Mean Corpuscular HGB Conc 32.5 g/dL (30-55); Mean Corpuscular Volume 89.2 fl (82-101); Mean Platelet Volume 9.2 fL (7.4-10.4); Monocytes # 0.9 10^3/uL (0.2-0.9); Monocytes % 8.4 %; Neutrophils # 9.81 10^3/uL (1.8-7.7); Neutrophils % 88.5 %; Nucleated Red Blood Cells % 0 %; Platelet Count 159 10^3/cmm (157-399); Red Blood Count 4.07 10^6/uL (3.85-5.65); Red Cell Distribution Width 13.3 % (12.1-15.1); White Blood Count 11.07 10^3/uL (3.29-11.43)
[2023-12-25 17:47] LABS: Alanine Aminotransferase 9 U/L (0-41); Albumin Level 3.7 g/dL (3.5-5.2); Alkaline Phosphatase 75 U/L (40-130); Anion Gap 12.9 (5-19); Aspartate Amino Transferase 16 U/L (0-40); Blood Urea Nitrogen 9 mg/dL (6-20); Calcium 7.9 mg/dL (8.5-10.5); Carbon Dioxide 24 mmol/L (22-29); Chloride 100 mmol/L (98-107); Creatinine Clr Calc Pharmacy 87.0173; Globulin 2.6 g/dL (1.3-4.6); Glomerular Filtration Rate 100.4 mL/min (90-130); Glucose 112 mg/dL (65-115); Osmolality Calculated 275 mOsm/kg (285-295); Potassium 3.9 mmol/L (3.5-5.1); Sodium 133 mmol/L (136-145); Total Bilirubin 0.4 mg/dL (0.15-1.2); Total Protein 6.3 g/dL (6.6-8.7)
[2023-12-25 17:50] LABS: ABG PCO2 37.5 mmHg (35-45); ABG PH Result 7.42 (7.35-7.45); Alveolar-Arterial Oxygen Gradi 7.5 mmHg (5-10); Arterial Blood Gas Hematocrit 37.4 % (42-52); Base Excess ABG -0.2 mmol/L (-2.0-2.0); Blood Gas Allen Test Pos; Blood Gas Operator Identificat BROMA; Blood Gas Sample Site Brachial, right; Blood Gas Sample Type Arterial; Carboxyhemoglobin 2.9 %THgb (0.4-20.1); HCO3 ABG 24.2 mmol/L (22-26); HGB O2 Sat 80.5 % (95-100); Ionized Calcium Level - ABG 1.1 mmol/L (1.1-1.4); Methemoglobin 1.1 % (0.4-1.5); Oxygen Device ROOM AIR; Oxygen Saturation ABG 83.9; PO2 ABG 45.5 mmHg (80.0-100.0); PO2 FiO2 Ratio Arterial Blood 0; Potassium Level - ABG 3.7 mmol/L (3.5-5.0); Total Hemoglobin 12.2 g/dL (14-18)
[2023-12-25 18:02] LABS: SARS Covid-2 Antigen negative (Negative)
[2023-12-25 18:03] LABS: Influenza A by IFA negative (Negative); Influenza B by IFA negative (Negative)
--- NOTE | 2023-12-25 18:10 | CTR_ITS ---
PROCEDURE INFORMATION: Exam: CTA Chest With Contrast Exam date and time: 12/25/2023 6:39 PM Age: 53 years old Clinical indication: Patient HX: Cough with tachycardia and hypoxemia. History of emphysema. Recent pneumothorax in 2023. ; Additional info: Hypoxemia, tachycardia TECHNIQUE: Imaging protocol: Computed tomographic angiography of the chest with contrast. Exam focused on the arteries. 3D rendering (Not supervised by radiologist): MIP and/or 3D reconstructed images were created by the technologist. Radiation optimization: All CT scans at this facility use at least one of these dose optimization techniques: automated exposure control; mA and/or kV adjustment per patient size (includes targeted exams where dose is matched to clinical indication); or iterative reconstruction. Contrast material: OMNI 350; Contrast volume: 71 ml; Contrast route: INTRAVENOUS (IV); COMPARISON: CT angio chest PE protcl [id number] 11/08/2023 10:48 AM RADIATION DOSE METRICS: Total DLP (mGy-cm): 209.49 FINDINGS: Pulmonary arteries: Pulmonary arteries are adequately visualized to the segmental level. No filling defects are identified to suggest pulmonary artery embolism. The main pulmonary artery is normal in size. There is no right heart strain. Aorta: The aorta is normal in course and caliber. No significant atherosclerotic calcifications are present. Lungs: [id number] emphysematous change. Breathing artifact limits evaluation of the pulmonary parenchyma. Nodular scarring interstitial thickening appears stable in the apices, likely chronic. Smoothly marginated 2.5 x 1.7 x 2.1 cm low-density nodule in the anterior aspect of the superior segment of the left lower lobe which has a somewhat tubular appearance and is inseparable from the major fissure and also appears to communicate with the pleura. This finding has a low likelihood of malignancy and may represent loculated fluid. No consolidation. No other pulmonary mass or suspicious pulmonary nodule. Minimal residual atelectasis or scarring in the left lung base. Pleural spaces: No pneumothorax. Heart: Heart size is within normal limits. There is no pericardial effusion or pericardial thickening. Coronary arteries: No coronary artery calcification. Lymph nodes: Nonspecific mildly enlarged right axillary lymph node measuring 11 x 16 mm. No other enlarged axillary or mediastinal lymph nodes. No obviously enlarged hilar lymph nodes. Bones/joints: No acute osseous abnormalities are seen. Stable 2.1 cm mixed lytic and sclerotic left proximal humeral lesion which has a nonaggressive appearance. Soft tissues: The soft tissues are within normal limits. CT/CT angio chest PE protcl [id number] IMPRESSION: 1. No evidence of pulmonary embolism. 2. No evidence of acute cardiopulmonary disease. 3. 2.5 cm smoothly marginated low-density nodule in the superior segment of the left lower lobe which is inseparable from the fissure and has apparent tubular communication with the pleura. This nodule has low likelihood for malignancy and three-month follow-up is recommended. See comments. 4. Nonaggressive appearing 2.1 cm mixed lytic and sclerotic lesion in the left humeral head. Follow-up with nonemergent on plain film radiography. Comments: For both low risk and high risk patients, consider CT Chest at 3 months, PET/CT, or biopsy. (Reference: Mely) References: Mely Benitez, et al. Guidelines for Management of Incidental Pulmonary Nodules Detected on CT Images: From the Fleischner Society 2017. Radiology. 2017;284(1):228-243.
[2023-12-25] MEDS: levofloxacin-dextrose 5 % 750 MG/150 ML PREMIX 100 MG IV (18:34)
[2023-12-25] MEDS: iohexol 350 mg/mL 500 mL Btl (per mL) IV (18:41)
--- NOTE | 2023-12-25 19:44 | P.HP_ITS ---
Providers/Chief Complaint 2 Primary Care Provider: Lurdes Nielson NP Chief Complaint: MIGRAINE History of Present Illness Johnathan Santiago is a 53 year old male with past medical history significant for emphysema/COPD, pneumothorax, tobacco use disorder who presents emergency department with severe headache. He reports onset last night. He endorses associated nausea and vomiting which is typical symptoms for his migraines. Movement worsens symptoms. Rest improves. He was treated with a migraine cocktail in the emergency department which he states improved the pain. In the emergency department, he was found to be tachycardic and hypoxic. He was noted to be wheezing. Has a known history of emphysema. Denies prior PFTs. He denies chest pain, productive cough, or shortness of breath. Denies prior need for home oxygen. Of note, he was admitted in October for respiratory failure and septic shock with hospital course complicated by pneumothorax requiring transfer to higher level of care. He states that when he returned home he quit smoking for some time but then picked it back up. He has been smoking for approximately 40 years. He is quit 4-5 times over the years using cold turkey method. Review of Systems 2 Narrative: A complete review of systems was obtained and is negative except as stated in HPI. Medications/Allergies Home Medications Medication Instructions Recorded Confirmed Last Taken Type amitriptyline 25 mg tablet 25 mg PO DAILY 11/07/23 11/07/23 Unknown History gabapentin 300 mg capsule 300 mg PO TID 11/07/23 11/07/23 Unknown History meloxicam 15 mg tablet 15 mg PO DAILY 11/07/23 11/07/23 Unknown History methocarbamol 750 mg tablet 750 mg PO TID PRN Pain 11/07/23 11/07/23 Unknown History Allergies Allergy/AdvReac Type Severity Reaction Status Date / Time No Known Allergies Allergy Verified 12/25/23 16:47 PFSH Acute 2 PFSH: Medical History Tobacco use disorder COPD (chronic obstructive pulmonary disease) Emphysema of lung Tobacco dependence Pneumonia Sepsis with acute respiratory failure and septic shock Surgical History History of chest tube placement Family History Mother No problems noted. Father No problems noted. Social History Smoking and tobacco/nicotine status: current every day tobacco/nicotine user cigarettes Packs smoked per day: 1.5 Years cigarettes smoked: 40 [ Other cigarette details: at times smoked more than 1.5/ppd] Second hand smoke exposure: Yes Alcohol intake: current Alcohol intake frequency: few times a month Alcohol type: hard liquor Substance/Drug Use: never Household members: spouse Current occupational status: unemployed Vitals/I&O/Wt Last Vital Signs Temp 99.5 F 12/25/23 16:40 Pulse 110 H 12/25/23 18:39 Resp 20 H 12/25/23 17:09 BP 105/64 12/25/23 18:39 Pulse Ox 90 12/25/23 18:39 O2 Del Method Nasal Cannula 12/25/23 17:09 O2 Flow Rate 2 12/25/23 17:09 Weight last 48 hrs Weight 58.967 kg Physical Exam 2 Narrative: General: Patient is awake. Appears fatigued, but pleasant. Head: Normocephalic. Atraumatic. EOM intact. Neck: No JVD. Cardiovascular: Rhythm is regular. Tachycardic. No gallops. No murmurs. No peripheral edema. Lungs: Prolonged expiratory phase with very faint end expiratory wheeze. No use of accessory muscles, no crackles or wheezes. On nasal canula support. Skin: No jaundice. No rashes. Abdomen: Normal bowel sounds, abdomen soft and nontender. Genito Urinary: Genital exam not performed since complaints not related. Rectal: Rectal exam not performed since no symptoms indicated blood loss. Extremities: No cyanosis or clubbing. Musculoskeletal: No swollen or erythematous joints. Neurological: Moves all 4 extremities. No myoclonus. Data 12/25/23 17:08 12/25/23 17:08 Micro: Microbiology 12/25/23 18:56 Blood Culture - Preliminary Blood SPECIMEN COLLECTED 12/25/23 18:50 Blood Culture - Preliminary Blood SPECIMEN COLLECTED A&P Assessment and plan (1) COPD with acute exacerbation: Acute COPD exacerbation with acute hypoxic respiratory insufficiency CT PE reviewed, negative for PE, negative for pneumonia, notable for pulmonary nodules Telemetry with continuous pulse oximetry Supplemental oxygen support Status post Levaquin in the emergency department Systemic steroids with Solu-Medrol Pulmicort DuoNebs (2) Tobacco use disorder: Patient would benefit from cessation Smoking cessation discussed for 4 minutes (3) Hypoxemia: As above (4) Headache: Continue home Elavil Continue home Mobic Analgesics as needed Antiemetics as needed (5) Hyponatremia: Monitor (6) Pulmonary nodule: Will need outpatient follow-up Plan DVT prophylaxis: Lovenox CODE STATUS: Full code Attestations 2 Medical Necessity Statement*: Patient presents to the emergency department with headache, found to have acute COPD exacerbation with acute hypoxic respiratory insufficiency requiring supplemental oxygen support with expected hospitalization not to cross 2 midnights for steroids, breathing treatments, supplemental oxygen, and supportive care. Coding Level of Care Code Acute Code for [facility] Diagnoses COPD with acute exacerbation J44.1 Tobacco use disorder F17.200 Hypoxemia R09.02 Headache R51.9 Hyponatremia E87.1 Pulmonary nodule R91.1
[2023-12-25] MEDS: methylPREDNISolone sod succ 40 MG in water for injection-sterile 1 ML 12 MG IVP (21:13)
[2023-12-25] MEDS: amitriptyline 25 mg Tablet PO (21:13)
[2023-12-25] MEDS: gabapentin 300 mg Capsule PO (21:13)
[2023-12-25] MEDS: enoxaparin 40 mg/0.4 mL Syringe SUBCUT (21:13)
[2023-12-26] VITALS (15 sets, daily range): BP systolic 111–135; BP diastolic 69–93; PULSE 88–109; RESP 16–20; TEMP 36.3–37; O2SAT 90–95; BMI 16.9
[2023-12-26] MEDS: ipratropium-albuterol 3 mL Neb INHALATION ×4 (01:20→19:27)
[2023-12-26] MEDS: methylPREDNISolone sod succ 40 MG in water for injection-sterile 1 ML 12 MG IVP (03:45)
[2023-12-26] MEDS: benzonatate 100 mg Capsule 200 MG PO ×2 (04:38→16:15)
[2023-12-26] MEDS: budesonide 0.5 mg/2 mL Neb INHALATION ×2 (08:34→19:27)
[2023-12-26] MEDS: meloxicam 7.5 mg tablet 15 MG PO (08:57)
[2023-12-26] MEDS: gabapentin 300 mg Capsule PO ×3 (08:57→20:47)
[2023-12-26] MEDS: methylPREDNISolone sod succ 40 mg/mL INJ IVP ×2 (09:00→20:47)
--- NOTE | 2023-12-26 10:45 | P.PN_ITS ---
Subjective 2 Subjective: No acute overnight events noted. Seen at bedside this morning feeling much better as compared to admission, bleeding improved, headache resolved. Still on supplemental oxygen at 2 L nasal cannula Medications: Reviewed: Yes Vitals/I&O/Wt Last Vital Signs Temp 98.3 F 12/26/23 08:00 Pulse 103 H 12/26/23 08:49 Resp 18 12/26/23 08:49 BP 115/69 12/26/23 08:00 Pulse Ox 93 12/26/23 08:49 O2 Del Method Nasal Cannula 12/26/23 08:49 O2 Flow Rate 3 12/26/23 08:49 12/25/23 12/26/23 12/26/23 22:59 06:59 14:59 Intake Total 1631 / 1631 681 / 2312 360 / 360 Balance 1631 / 1631 681 / 2312 360 / 360 Weight last 48 hrs Weight 58.06 kg Weight 58.06 kg Weight 58.967 kg Physical Exam 2 Narrative: General: Patient is awake. Appears fatigued, but pleasant. Head: Normocephalic. Atraumatic. EOM intact. Neck: No JVD. Cardiovascular: Rhythm is regular. Tachycardic. No gallops. No murmurs. No peripheral edema. Lungs: Clear to auscultation bilaterally on nasal canula support. Skin: No jaundice. No rashes. Abdomen: Normal bowel sounds, abdomen soft and nontender. Genito Urinary: Genital exam not performed since complaints not related. Rectal: Rectal exam not performed since no symptoms indicated blood loss. Extremities: No cyanosis or clubbing. Musculoskeletal: No swollen or erythematous joints. Neurological: Moves all 4 extremities. No myoclonus. Data 12/25/23 17:08 12/25/23 17:08 Micro: Microbiology 12/25/23 18:56 Blood Culture - Preliminary Blood SPECIMEN COLLECTED 12/25/23 18:50 Blood Culture - Preliminary Blood SPECIMEN COLLECTED A&P Assessment and plan (1) COPD with acute exacerbation: Acute COPD exacerbation with acute hypoxic respiratory insufficiency Supplemental oxygen support No need for antibiotics for now Systemic steroids with Solu-Medrol Pulmicort DuoNebs (2) Tobacco use disorder: Educated and counseled about smoking cessation (3) Hypoxemia: Resolved (4) Headache: Resolved continue home Elavil Continue home Mobic (5) Hyponatremia: Monitor (6) Pulmonary nodule: Will need outpatient follow-up Plan DVT prophylaxis: Lovenox CODE STATUS: Full code Attestations 2 Medical Necessity Statement*: He needs continued hospitalization not crossing 2 midnights for acute COPD exacerbation with IV steroids and DuoNebs and supplemental oxygen. Time Spent in Patient Care: 15 minutes Coding Level of Care Code Acute Code for [facility] Diagnoses COPD with acute exacerbation J44.1 Tobacco use disorder F17.200 Hypoxemia R09.02 Headache R51.9 Hyponatremia E87.1 Pulmonary nodule R91.1 Time Spent (min) 15
[2023-12-26] MEDS: methocarbamol 750 mg Tablet PO (16:19)
[2023-12-26] MEDS: amitriptyline 25 mg Tablet PO (20:47)
[2023-12-26] MEDS: enoxaparin 40 mg/0.4 mL Syringe SUBCUT (20:47)
[2023-12-27] VITALS (8 sets, daily range): BP systolic 108–124; BP diastolic 74–76; PULSE 83–108; RESP 16–18; TEMP 36.3–36.9; O2SAT 92–95
[2023-12-27] MEDS: ipratropium-albuterol 3 mL Neb INHALATION ×2 (01:50→07:45)
[2023-12-27] MEDS: budesonide 0.5 mg/2 mL Neb INHALATION (07:45)
[2023-12-27] MEDS: methylPREDNISolone sod succ 40 mg/mL INJ IVP (08:00)
[2023-12-27] MEDS: meloxicam 7.5 mg tablet 15 MG PO (08:00)
[2023-12-27] MEDS: gabapentin 300 mg Capsule PO (08:01)
--- NOTE | 2023-12-27 09:03 | PM.DCS ---
Discharge Providers Date of Admission: 12/25/23 19:32 Date of Discharge: December 27, 2023 Attending Provider at Admission: Ashok Leroy MD Attending Provider at Discharge: Jessica Parker MD Primary Care Provider: Lurdes Nielson NP Diagnoses at Discharge Discharge Diagnosis (1) COPD with acute exacerbation: Status: Acute (2) Tobacco use disorder: Status: Acute (3) Hypoxemia: Status: Acute (4) Headache: Status: Acute (5) Hyponatremia: Status: Resolved (6) Pulmonary nodule: Status: Acute Reason for Visit Reason for Visit: MIGRAINE Brief History: Johnathan Santiago is a 53 year old male with past medical history significant for emphysema/COPD, pneumothorax, tobacco use disorder who presents emergency department with severe headache. He reports onset last night. He endorses associated nausea and vomiting which is typical symptoms for his migraines. Movement worsens symptoms. Rest improves. He was treated with a migraine cocktail in the emergency department which he states improved the pain. In the emergency department, he was found to be tachycardic and hypoxic. He was noted to be wheezing. Has a known history of emphysema. Denies prior PFTs. He denies chest pain, productive cough, or shortness of breath. Denies prior need for home oxygen. Of note, he was admitted in October for respiratory failure and septic shock with hospital course complicated by pneumothorax requiring transfer to higher level of care. He states that when he returned home he quit smoking for some time but then picked it back up. He has been smoking for approximately 40 years. He is quit 4-5 times over the years using cold turkey method. Hospital Course Hospital Course He was treated for Acute COPD exacerbation with acute hypoxic respiratory insufficiency stated on Supplemental oxygen support to keep saturation above 90%. there was no need for antibiotics. Duonebs given every 6 hours. He is doing better, hypoxia resolved, cough improved and is ready to be discharged home. HE was found to have a pulmonary nodule and will need to follow up outatient with PCP. Counselled and educated about smoking cessation. Physical Exam Narrative: He is alert awake oriented x 3, not in acute distress Chest is clear to auscultation bilaterally Cardiovascular normal heart sounds no murmurs Abdomen NAD Extremities no edema noted Discharge Data Studies Completed and Pending Completed Studies During Hospitalization Category Date Time Status CT angio chest PE protcl [id number] Stat Cat Scan 12/25/23 18:10 Completed XR chest 1V [id number] Stat Exams 12/25/23 16:48 Completed Pending at discharge Category Date Time Status Blood Culture Stat Lab 12/25/23 18:56 Results Radiology Impressions Chest X-Ray 12/25/23 16:48 IMPRESSION: 1. 2.4 cm left perihilar nodule. Possibly enlarged left hilar lymph node or nodule obscured by consolidation on prior CT. Recommend further evaluation with nonemergent CT chest. 2. No evidence of acute cardiopulmonary disease. Chest CTA 12/25/23 18:10 IMPRESSION: 1. No evidence of pulmonary embolism. 2. No evidence of acute cardiopulmonary disease. 3. 2.5 cm smoothly marginated low-density nodule in the superior segment of the left lower lobe which is inseparable from the fissure and has apparent tubular communication with the pleura. This nodule has low likelihood for malignancy and three-month follow-up is recommended. See comments. 4. Nonaggressive appearing 2.1 cm mixed lytic and sclerotic lesion in the left humeral head. Follow-up with nonemergent on plain film radiography. Comments: For both low risk and high risk patients, consider CT Chest at 3 months, PET/CT, or biopsy. (Reference: Mely) References: Meyl H, et al. Guidelines for Management of Incidental Pulmonary Nodules Detected on CT Images: From the Fleischner Society 2017. Radiology. 2017;284(1):228-243. Laboratory Results WBC 11.07 10^3/uL (3.29-11.43) 12/25/23 17:08 RBC 4.07 10^6/uL (3.85-5.65) 12/25/23 17:08 Hgb 11.80 g/dL (11.27-16.99) 12/25/23 17:08 Hct 36.3 % (37-53) L 12/25/23 17:08 MCV 89.2 fl (82-101) 12/25/23 17:08 MCH 29.0 pg (27-33) 12/25/23 17:08 MCHC 32.5 g/dL (30-55) 12/25/23 17:08 RDW 13.3 % (12.1-15.1) 12/25/23 17:08 Plt Count 159 10^3/cmm (157-399) 12/25/23 17:08 MPV 9.2 fL (7.4-10.4) 12/25/23 17:08 Neut % (Auto) 88.5 % 12/25/23 17:08 Lymph % (Auto) 2.0 % 12/25/23 17:08 [place] % (Auto) 8.4 % 12/25/23 17:08 Eos % (Auto) 0.2 % 12/25/23 17:08 Baso % (Auto) 0.5 % 12/25/23 17:08 Neut # (Auto) 9.81 10^3/uL (1.8-7.7) H 12/25/23 17:08 Lymph # (Auto) 0.2 10^3/uL (0.8-4.8) L 12/25/23 17:08 [place] # (Auto) 0.9 10^3/uL (0.2-0.9) 12/25/23 17:08 Eos # (Auto) 0.0 10^3/uL (0.0-0.8) 12/25/23 17:08 Baso # (Auto) 0.1 10^3/uL (0.0-0.1) 12/25/23 17:08 Nucleated RBC % (auto) 0 % 12/25/23 17:08 Nucleated RBCs # 0.0 /100WBC 12/25/23 17:08 Specimen Type Arterial 12/25/23 17:31 Sample Site Brachial, right 12/25/23 17:31 ABG pH 7.42 (7.35-7.45) 12/25/23 17:31 ABG pCO2 37.5 mmHg (35-45) 12/25/23 17:31 ABG pO2 45.5 mmHg (80.0-100.0) L 12/25/23 17:31 ABG PO2/FiO2 Ratio 0 12/25/23 17:31 ABG HCO3 24.2 mmol/L (22-26) 12/25/23 17:31 ABG O2 Saturation 83.9 12/25/23 17:31 ABG Base Excess -0.2 mmol/L (-2.0-2.0) 12/25/23 17:31 Shakir Test Pos 12/25/23 17:31 A-a O2 Gradient 7.5 mmHg (5-10) 12/25/23 17:31 Hematocrit 37.4 % (42-52) L 12/25/23 17:31 Hgb O2 Saturation 80.5 % (95-100) L 12/25/23 17:31 Carboxyhemoglobin 2.9 %THgb (0.4-20.1) 12/25/23 17:31 Methemoglobin 1.1 % (0.4-1.5) 12/25/23 17:31 Total Hemoglobin 12.2 g/dL (14-18) L 12/25/23 17:31 Sodium 133.0 mmol/L (131-143) 12/25/23 17:31 Potassium 3.7 mmol/L (3.5-5.0) 12/25/23 17:31 Glucose 102.0 mg/dL (70-115) 12/25/23 17:31 Ionized Calcium 1.1 mmol/L (1.1-1.4) 12/25/23 17:31 O2 Delivery Device Room air 12/25/23 17:31 FiO2 21.0 % 12/25/23 17:31 Men'S Furnishings Salesperson ID Broma 12/25/23 17:31 Sodium 133 mmol/L (136-145) L 12/25/23 17:08 Potassium 3.9 mmol/L (3.5-5.1) 12/25/23 17:08 Chloride 100 mmol/L (98-107) 12/25/23 17:08 Carbon Dioxide 24 mmol/L (22-29) 12/25/23 17:08 Anion Gap 12.9 (5-19) 12/25/23 17:08 BUN 9 mg/dL (6-20) 12/25/23 17:08 Creatinine 0.8 mg/dL (0.7-1.2) 12/25/23 17:08 GFR Calculation 100.4 mL/min (90-130) 12/25/23 17:08 Glucose 112 mg/dL (65-115) 12/25/23 17:08 Calculated Osmolality 275 mOsm/kg (285-295) L 12/25/23 17:08 Lactic Acid 1.0 mmol/L (0.5-2.2) 12/25/23 17:08 Calcium 7.9 mg/dL (8.5-10.5) L 12/25/23 17:08 Total Bilirubin 0.4 mg/dL (0.15-1.2) 12/25/23 17:08 AST 16 U/L (0-40) 12/25/23 17:08 ALT 9 U/L (0-41) 12/25/23 17:08 Alkaline Phosphatase 75 U/L (40-130) 12/25/23 17:08 Total Protein 6.3 g/dL (6.6-8.7) L 12/25/23 17:08 Albumin 3.7 g/dL (3.5-5.2) 12/25/23 17:08 Globulin 2.6 g/dL (1.3-4.6) 12/25/23 17:08 Influenza Type A Ag negative (Negative) 12/25/23 17:29 Influenza Type B Ag negative (Negative) 12/25/23 17:29 SARS-CoV-2 Ag (Rapid) negative (Negative) 12/25/23 17:29 Vitals Last Vital Signs Temp 97.3 F L 12/27/23 07:30 Pulse 102 H 12/27/23 07:54 Resp 16 12/27/23 07:46 BP 124/76 12/27/23 07:30 Pulse Ox 92 12/27/23 07:54 O2 Del Method Room Air 12/27/23 07:54 O2 Flow Rate 1.5 12/27/23 07:46 Discharge Plan Discharge Patient Disposition: Home Condition: Stable Prescriptions: New ipratropium-albuterol 0.5 mg-3 mg(2.5 mg base)/3 mL Solution For Nebulization 3 ml inhalation 2XD 5 Days Qty: 10 0RF Medrol (Carlyle) 4 mg tablets,dose pack See Rx Instructions .ROUTE .COMPLEX Qty: 21 0RF Rx Instructions: orally per package directions Continued gabapentin 300 mg capsule 300 mg PO TID PRN (Reason: leg pain) amitriptyline 25 mg tablet 25 mg PO DAILY meloxicam 15 mg tablet 15 mg PO DAILY methocarbamol 750 mg tablet 750 mg PO TID PRN (Reason: Muscle Spasm) Discharge Orders: Discharge Order (Routine); Ordered 12/27/23 Ordered By: Jessica Parker Referrals: Lurdes Nielson CURRENCY COUNTER [Primary Care Provider] - Discharge Diet: Regular Discharge Activity: Increase activity as tolerated Patient Instructions: Opioid Safety Discharge Attestations Time Spent in Discharge Care*: less than 30 min Quality Metrics Clinical Quality Measures [ No reported AMI, CVA or VTE this stay] Coding Level of Care Code Acute Code for Chg Fwd Diagnoses COPD with acute exacerbation J44.1 Tobacco use disorder F17.200 Hypoxemia R09.02 Headache R51.9 Hyponatremia E87.1 Pulmonary nodule R91.1 Time Spent (min) 20
== END 2023-12-27 10:54 | disposition home or self-care (01) ==
LOC: ER 19:32 → MEDSURG 20:01
PROVIDERS: Admitting Provider Internal Medicine; Emergency Provider Emergency Medicine; PCP Nurse Practitioner Family; Visit Provider Internal Medicine
DX: J44.1 Chronic obstructive pulmonary disease with (acute) exacerbation (principal); F17.200 Nicotine dependence, unspecified, uncomplicated; R09.02 Hypoxemia; R51.9 Headache, unspecified; E87.1 Hypo-osmolality and hyponatremia; R91.1 Solitary pulmonary nodule; R00.0 Tachycardia, unspecified
CPT/HCPCS: 36415; 71045; 71275; 80051; 80053; 82330; 82805; 83605; 85025; 87040; 87426; 87804; 93005; 94640; 96365; 96372; 96375; 96376; 99285; G0378; J1100; J1200; J1650; J1956; J2360; J2405; J2765; J2920; J7030; J7613; J7626; Q9967

== ENCOUNTER → 2024-09-11 12:47 | Outpatient (BNVA) | payer MEDICAID, SELFPAY | PROVIDERS: PCP Nurse Practitioner Family; Visit Provider Internal Medicine Cardiovascular Disease | DX: E78.5 Hyperlipidemia, unspecified (principal) | CPT/HCPCS: 36415; 80061; 80076 ==

== ENCOUNTER 2024-10-04 10:32 | Outpatient (CLI) | payer MEDICAID, SELFPAY ==
--- NOTE | 2024-10-04 | ECG_ITS ---
[facility] Test Date: 2024-10-04 Pat Name: Johnathan Santiago Department: Room: Gender: Male Program Services Planner: : 1970 Requested By: Sharmin Barboza Order Number: [id number] Albrecht MD: Gabe Arechiga M.D. Interpretive Statements EXERCISE MIBI : EXERCISE DATA: The patient was exercised by Ac protocol. Baseline heart rate was 86 beats per minute. Baseline blood pressure was 109/72 millimeters of mercury. Maximal predicted heart rate was 164 beats per minute. Maximum heart rate achieved was 152 which was 92% of the maximum predicted heart rate. Maximum blood pressure was 158/58 millimeters of mercury. Total exercise time was 9 minutes. Maximum METs achieved was 10.The reason for ending the test was completion of protocol. The patient complained of shortness of breath during the stress test, which then resolved at the end of the test. ELECTROCARDIOGRAM: BASELINE: Showed sinus rhythm, normal axis, incomplete right bundle branch block no significant ST-T changes at the baseline noted. ] EXERCISE: At the peak exercise level, [] No significant ST-T changes suggestive of ischemia noted. [] RECOVERY: During the recovery period, heart rate dropped appropriately. No significant ST-T changes in the recovery suggestive of ischemia noted. [] CONCLUSION: 1. Exercise capacity is good. 2. Heart rate response was appropriate 3. Blood pressure response was appropriate 4. Symptoms not suggestive of ischemia. 5. Electrocardiogram portion of the stress test was not suggestive of ischemia. 6. Nuclear scan will be documented separately. Electronically Signed On 10-14-2024 23:04:32 [employer] SITTER by Gabe Arechiga M.D. [email or web address]
[2024-10-04 10:56] VITALS: BMI 17.8
--- NOTE | 2024-10-04 11:00 | NMCV_ITS ---
NM kori perf SPECT r/s* [id number] Johnathan Santiago Age: 54 Gender: M : 1970 Exam Date: 10/04/2024 11:00 Ordering Phys: Sharmin Barboza MD ([email or web address]) Technologist: TERRA Mac Exam Location: [facility] Indications: cp STRESS TEST Please see separate stress test report in [facility] for full findings IMAGE PROTOCOL Rest/Stress 1 Exercise Day Radiopharmaceutical Dose (mCi) Administration Site Administered by Rest: Tc-99m 10.4 IV TERRA Mac Sestamibi Stress:Tc-99m 32.9 IV TERRA Mac Sestamibi Rest: 04-Oct-2024 60 Discovery 630 Stress: 04-Oct-2024 15 Discovery 630 Radiopharmaceutical was injected at 88 % maximum heart rate. Images obtained in supine and prone position. SPECT RESULTS Technical Quality: Good Raw Data Analysis: Normal Image Corrections: No attenuation or motion correction applied Summed Stress Score: 0 Summed Rest Score: 3 Summed Difference Score: 0 PERFUSION FINDINGS SPECT images demonstrate homogeneous tracer distribution throughout the myocardium. FUNCTIONAL RESULTS (calculated via Gated SPECT) Stress Image LV EF (%): 69 Stress EDV (mL):84 TID: 0.9 Stress ESV (mL):26 FUNCTIONAL FINDINGS: There is normal left ventricular systolic function. IMPRESSIONS Myocardial perfusion imaging is normal. Guillaume Gonzalez MD (Electronically Signed) Final Date: 05 October 2024 12:48 S
[2024-10-04 12:36] VITALS: BP 154/78; PULSE 103
== END 2024-10-04 10:33 | disposition home or self-care (01) ==
LOC: CDL 10:33
PROVIDERS: PCP Nurse Practitioner Family; Visit Provider Internal Medicine Cardiovascular Disease
DX: R07.9 Chest pain, unspecified (principal); Z98.61 Coronary angioplasty status
CPT/HCPCS: 36415; 78452; 93017; A9500

== ENCOUNTER 2024-12-09 04:04 | Emergency (ER) | payer MEDICAID, SELFPAY ==
[2024-12-09 04:08] VITALS: PULSE 86; RESP 12; TEMP 36.6; O2SAT 98; BMI 17.8
--- NOTE | 2024-12-09 04:11 | W.ED.NAVMDI ---
HPI - Nausea/Vomiting/Diarrhea General: Chief complaint: Nausea/Vomiting/Diarrhea Stated complaint: N/V Time Seen by Provider: 12/09/24 04:08 History of Present Illness: Patient presents to the ER with complaints of nausea vomiting x 2 days. He says his getting worse and is unable to keep anything down. He has been around no sick contacts, does get this way every once a while when he overexerts himself. Does not think he is ate any bad food. Denies any abdominal surgeries. Does have a history of COPD, no allergies, Related Data Home Medications ?Medication ?Instructions ?Recorded ?Confirmed meloxicam 15 mg tablet 15 mg PO DAILY 11/07/23 12/26/23 gabapentin 300 mg capsule 600 mg PO TID leg pain 09/11/24 albuterol sulfate 90 mcg/actuation 2 puff inhalation Q4H PRN 09/12/24 aerosol inhaler azithromycin 250 mg tablet 250 mg PO .3XWeekly 09/12/24 ikxhdbtefb-wuuzhsqkkeajv-swrimfnb 1 cap PO Q4H PRN 09/12/24 50 mg-325 mg-40 mg capsule methocarbamol 750 mg tablet 750 mg PO TID PRN 09/12/24 omeprazole 20 mg capsule,delayed 20 mg PO DAILY 09/12/24 release tizanidine 2 mg capsule 2 mg PO TID PRN 09/12/24 topiramate 50 mg tablet 50 mg PO .HS 09/12/24 trazodone 50 mg tablet 50 mg PO .HS 09/12/24 varenicline tartrate 0.5 mg (11)-1 See Rx Instructions PO PER PKG DIR 09/12/24 mg (42) tablets in a dose pack Previous Rx's ?Medication ?Instructions ?Recorded ondansetron HCl 4 mg tablet 4 mg PO Q8H PRN nausea and 12/09/24 vomiting #14 tabs Allergies Allergy/AdvReac Type Severity Reaction Status Date / Time No Known Allergies Allergy Verified 10/04/24 10:56 Review of Systems General: Reports: 10 or more systems reviewed and unremarkable except in HPI and below PFSH ED PFSH: Medical History Pulmonary nodule Tobacco use disorder COPD (chronic obstructive pulmonary disease) Emphysema of lung Tobacco dependence Pneumonia Sepsis with acute respiratory failure and septic shock Surgical History History of chest tube placement Family History Mother No problems noted. Father No problems noted. Social History Smoking and tobacco/nicotine status: current every day tobacco/nicotine user cigarettes Packs smoked per day: 1.5 Years cigarettes smoked: 40 [ Other cigarette details: at times smoked more than 1.5/ppd] Second hand smoke exposure: Yes Alcohol intake: current Alcohol intake frequency: few times a month Alcohol type: hard liquor Substance/Drug Use: never Household members: spouse Current occupational status: unemployed Physical Exam Const: COMMON NORMALS: no acute distress, average body habitus, patient oriented x3, no limitations, healthy appearing, alert and well nourished HENMT: COMMON NORMALS: normocephalic, atraumatic, hearing grossly normal bilaterally, external ears normal, Normal external nose present, moist oral mucous membranes and oropharynx normal HEAD & SCALP: normocephalic and atraumatic NOSE: Normal external nose present EXTERNAL EAR: Yes external ears normal Neck/C-Spine: COMMON NORMALS: no JVD Chest: COMMONS NORMALS: normal inspection of the chest and normal palpation of entire chest wall Resp: COMMON NORMALS: normal respiratory effort, No retractions, No use of accessory muscles and clear to auscultation bilaterally AUSCULTATION: clear to auscultation bilaterally Cardio: COMMON NORMALS: no JVD, regular rate, regular rhythm, S1 normal heart sound present, S2 normal heart sound present, No gallops present (Cardio), No clicks present (Cardio), No murmurs present (Cardio) and No rub (Cardio) RATE: regular rate RHYTHM: regular rhythm HEART SOUNDS: S1 normal heart sound present and S2 normal heart sound present GI: COMMON NORMALS: Normal to inspection, nondistended, normoactive bowel sounds present, Soft to palpation, non-tender, No hepatosplenomegaly present and no masses PALPATION: Yes Soft to palpation and Yes No hepatosplenomegaly present Neuro: COMMON NORMALS: patient oriented x3 SENSORIUM/ORIENTATION: Yes alert Course Vital Signs: Vital signs: Vital Signs Temperature 98 F 12/09/24 04:08 Pulse Rate 73 12/09/24 05:05 Respiratory Rate 18 12/09/24 05:05 Blood Pressure 158/91 12/09/24 05:05 Pulse Oximetry 98 12/09/24 05:05 Oxygen Delivery Me thod Room Air 12/09/24 05:05 MDM - Nausea/Vomiting/Diarrhea Medical Decision Making Lab work was obtained. Liter normal saline was infused as well as 10 mg of Reglan, patient received 8 mg of Zofran from EMS. Patient was noted to be sleeping upon reevaluation. Patient be discharged home. Medical Records I reviewed the patient's medical records. Lab Data I reviewed the patient's lab results. 12/09/24 04:10 12/09/24 04:10 Laboratory Results WBC 13.83 10^3/uL (3.29-11.43) H 12/09/24 04:10 RBC 5.05 10^6/uL (3.85-5.65) 12/09/24 04:10 Hgb 14.90 g/dL (11.27-16.99) 12/09/24 04:10 Hct 44.3 % (37-53) 12/09/24 04:10 MCV 87.7 fl (82-101) 12/09/24 04:10 MCH 29.5 pg (27-33) 12/09/24 04:10 MCHC 33.6 g/dL (30-55) 12/09/24 04:10 RDW 11.8 % (12.1-15.1) L 12/09/24 04:10 Plt Count 213 10^3/cmm (157-399) 12/09/24 04:10 MPV 9.6 fL (7.4-10.4) 12/09/24 04:10 Neut % (Auto) 89.4 % 12/09/24 04:10 Lymph % (Auto) 5.8 % 12/09/24 04:10 [place] % (Auto) 4.1 % 12/09/24 04:10 Eos % (Auto) 0.1 % 12/09/24 04:10 Baso % (Auto) 0.3 % 12/09/24 04:10 Neut # (Auto) 12.36 10^3/uL (1.8-7.7) H 12/09/24 04:10 Lymph # (Auto) 0.8 10^3/uL (0.8-4.8) 12/09/24 04:10 [place] # (Auto) 0.6 10^3/uL (0.2-0.9) 12/09/24 04:10 Eos # (Auto) 0.0 10^3/uL (0.0-0.8) 12/09/24 04:10 Baso # (Auto) 0.0 10^3/uL (0.0-0.1) 12/09/24 04:10 Nucleated RBC % (auto) 0 % 12/09/24 04:10 Nucleated RBCs # 0.0 /100WBC 12/09/24 04:10 Sodium 138 mmol/L (136-145) 12/09/24 04:10 Potassium 3.6 mmol/L (3.5-5.1) 12/09/24 04:10 Chloride 101 mmol/L (98-107) 12/09/24 04:10 Carbon Dioxide 25 mmol/L (22-29) 12/09/24 04:10 Anion Gap 15.6 (5-19) 12/09/24 04:10 BUN 19 mg/dL (6-20) 12/09/24 04:10 Creatinine 1.1 mg/dL (0.7-1.2) 12/09/24 04:10 GFR Calculation 69.2 mL/min (90-130) L 12/09/24 04:10 Glucose 111 mg/dL (65-115) 12/09/24 04:10 Calculated Osmolality 289 mOsm/kg (285-295) 12/09/24 04:10 Calcium 9.0 mg/dL (8.5-10.5) 12/09/24 04:10 Magnesium 1.7 mg/dL (1.7-2.3) 12/09/24 04:10 Total Bilirubin 0.5 mg/dL (0.15-1.2) 12/09/24 04:10 AST 14 U/L (0-40) 12/09/24 04:10 ALT 8 U/L (0-41) 12/09/24 04:10 Alkaline Phosphatase 106 U/L (40-130) 12/09/24 04:10 Total Protein 7.1 g/dL (6.6-8.7) 12/09/24 04:10 Albumin 4.5 g/dL (3.5-5.2) 12/09/24 04:10 Globulin 2.6 g/dL (1.3-4.6) 12/09/24 04:10 Lipase 20 U/L (13-60) 12/09/24 04:10 All radiology interpretation(s) finalized by discharge Discharge Plan Discharge Patient Disposition: Home Clinical Impression: Gastroenteritis Condition: Stable Prescriptions: New ondansetron HCl 4 mg tablet 4 mg PO Q8H PRN (Reason: nausea and vomiting) Qty: 14 0RF No Action tgreniezlg-ilmvtsuaabvjt-kpgt 50-325-40 mg capsule 1 cap PO Q4H PRN trazodone 50 mg tablet 50 mg PO .HS azithromycin 250 mg tablet 250 mg PO .3XWeekly Rx Instructions: Wednesday, Wednesday, Wednesday methocarbamol 750 mg tablet 750 mg PO TID PRN omeprazole 20 mg capsule,delayed release(DR/EC) 20 mg PO DAILY albuterol sulfate 90 mcg/actuation HFA aerosol inhaler 2 puff inhalation Q4H PRN topiramate 50 mg tablet 50 mg PO .HS tizanidine 2 mg capsule 2 mg PO TID PRN varenicline tartrate 0.5 mg (11)- 1 mg (42) tablets,dose pack See Rx Instructions PO PER PKG DIR Rx Instructions: PO PER PKG DIR meloxicam 15 mg tablet 15 mg PO DAILY gabapentin 300 mg capsule 600 mg PO TID Discharge Orders: Discharge ED (Routine); Ordered 12/09/24 Ordered By: Royce Varela Referrals: Lurdes Nielson NP [Primary Care Provider] - 1 week Patient Instructions: Acute Nausea and Vomiting (ED) Activity Restrictions/Additional Instructions: Activity restrictions/additional instructions: Thank you for choosing [facility] for your healthcare needs today. Please realize that you were seen in the emergency department and that we are providing you with an emergency medical screening exam and this may not be a complete and all exclusive of all testing and/or medical workup we may need to determine your element or severity of your illness. It is very important that you follow-up as instructed with your primary care provider or specialist for the additional evaluation and to discuss your medical treatment plan. You may return to the emergency department should you have concerns or if your condition changes or worsens in any way. Print Language: Wolof Coding Level of Care Code ED Building Dismantler for Rafiq Vee
[2024-12-09 04:18] LABS: Basophils % 0.3 %; Eosinophils % 0.1 %; Hematocrit 44.3 % (37-53); Lymphocytes # 0.8 10^3/uL (0.8-4.8); Lymphocytes % 5.8 %; Mean Corpuscular HGB Conc 33.6 g/dL (30-55); Mean Corpuscular Hemoglobin 29.5 pg (27-33); Mean Corpuscular Volume 87.7 fl (82-101); Mean Platelet Volume 9.6 fL (7.4-10.4); Monocytes # 0.6 10^3/uL (0.2-0.9); Monocytes % 4.1 %; Neutrophils # 12.36 10^3/uL (1.8-7.7); Neutrophils % 89.4 %; Nucleated Red Blood Cells % 0 %; Platelet Count 213 10^3/cmm (157-399); Red Blood Count 5.05 10^6/uL (3.85-5.65); Red Cell Distribution Width 11.8 % (12.1-15.1); White Blood Count 13.83 10^3/uL (3.29-11.43)
[2024-12-09] MEDS: metoclopramide 5 mg/mL SDV 2 mL 10 MG IVP (04:18)
[2024-12-09] MEDS: sodium chloride 0.9% 1,000 ML 999 ML IV (04:18)
[2024-12-09 04:35] LABS: Alanine Aminotransferase 8 U/L (0-41); Albumin Level 4.5 g/dL (3.5-5.2); Alkaline Phosphatase 106 U/L (40-130); Anion Gap 15.6 (5-19); Aspartate Amino Transferase 14 U/L (0-40); Blood Urea Nitrogen 19 mg/dL (6-20); Carbon Dioxide 25 mmol/L (22-29); Chloride 101 mmol/L (98-107); Globulin 2.6 g/dL (1.3-4.6); Glomerular Filtration Rate 69.2 mL/min (90-130); Glucose 111 mg/dL (65-115); Lipase 20 U/L (13-60); Magnesium 1.7 mg/dL (1.7-2.3); Osmolality Calculated 289 mOsm/kg (285-295); Potassium 3.6 mmol/L (3.5-5.1); Sodium 138 mmol/L (136-145); Total Bilirubin 0.5 mg/dL (0.15-1.2); Total Protein 7.1 g/dL (6.6-8.7)
[2024-12-09 05:05] VITALS: BP 158/91; PULSE 73; RESP 18; O2SAT 98
[2024-12-09 05:15] VITALS: BP 158/91; PULSE 68; RESP 18; O2SAT 97
== END 2024-12-09 05:25 | disposition home or self-care (01) ==
PROVIDERS: Emergency Provider Emergency Medicine; PCP Nurse Practitioner Family
DX: K52.9 Noninfective gastroenteritis and colitis, unspecified (principal); F17.210 Nicotine dependence, cigarettes, uncomplicated; J44.9 Chronic obstructive pulmonary disease, unspecified
CPT/HCPCS: 80053; 83690; 83735; 85025; 96361; 96374; 99284; J2765; J7030